=== PATIENT | female | born 1950 | race Caucasian/White ===

== ENCOUNTER → 2024-11-01 | Outpatient (CLI) | payer MEDICARE, SELFPAY ==
[2024-11-01 11:46] LABS: Mucous, Urine 0 SEEN /hpf (<or=2+)
[2024-11-01 12:27] LABS: Color, Urine Yellow (Yellow); Glucose, Dipstick Normal (Normal); Ketone-Dipstick 15 mg/dl (Negative); Leukocyte Esterase-Dipstick 25 /ul (Negative); Nitrite-Dipstick Negative (Negative); Occult Blood-Urine 25 /ul (Negative); Protein-Dipstick 15 mg/dl (Negative); Urine Bilirubin Dipstick Negative (Negative); Urine Clarity Sl. Cloudy (Clear); Urine Urobilinogen 1 mg/dl (Normal)
[2024-11-01 12:34] LABS: Bacteria 1+ /hpf (None Seen); Squamous Epithelial Cells - UA 0-5 SEEN /hpf (5-10)
[2024-11-01 12:35] LABS: Absolute Lymphocyte Count 0.97 X10^3/uL (0.83-4.51); Absolute Neutrophil Count 3.7 X10^3/uL (2.0-7.7); Basophil# 0.06 X10^3/uL; Basophil% 1.1 % (0-1); Eosinophil# 0.29 X10^3/uL; Eosinophils% 5.3 % (0-5); Hematocrit 37.4 % (37-47); Hemoglobin 12.7 g/dL (12.0-15.0); Lymphocyte # 0.97 X10^3/ul (0.83-4.51); Lymphocyte % 17.8 % (19-41); Mean Corpuscular Hgb 32.4 pg (27.0-32.0); Mean Corpuscular Volume 95.4 fL (81-99); Mean Platelet Vol. 10.9 fl (6.2-12.0); Monocyte# 0.47 X10^3/uL; Monocyte% 8.6 % (0-10); NRBC Flagged by Analyzer 0 % (0-5); Neutrophil # 3.65 X10^3/uL (2.7-7.7); Neutrophil % 66.8 % (47-70); Platelet Count 191 K/mm3 (150-450); RBC Distribution Width CV 12.8 % (11.6-14.6); RBC Distribution Width SD 44.7 fl (35.1-43.9); Red Blood Cells-Urine 0-5 SEEN /hpf (0-5); Red Blood Count 3.92 M/mm3 (4.2-5.4); White Blood Cells 0-5 SEEN /hpf (0-5); White Blood Count 5.5 K/mm3 (4.4-11.0)
[2024-11-01 13:19] LABS: ALB/GLOB Ratio 1.5 RATIO (0.9-2.4); AST(SGOT) 15 U/L (<=31); Alanine Aminotransfer ALT/SGPT < 5 U/L (<=34); Albumin, Serum 4.2 g/dL (3.4-4.8); Alkaline Phosphatase 100 U/L (35-104); Anion Gap 10 (5-15); BUN 20 mg/dL (4-19); BUN/Creat Ratio 26.1 RATIO (10-20); Calcium,Total 9.4 mg/dL (7.6-11.0); Carbon Dioxide 26.8 mmol/L (21.0-32.0); Chloride 104 mmol/L (98-108); Creatinine, Serum 0.76 mg/dL (0.70-1.20); EST Glomerular Filtration Rate 81 (>60); Globulin 2.8 g/dL (2.2-4.2); Glucose 76 mg/dL (70-99); Potassium 4.2 mmol/L (3.3-5.1); Sodium Level 140 mmol/L (133-145); Total Bilirubin 0.46 mg/dL (0.00-1.30)
== END | disposition home or self-care (01) ==
PROVIDERS: PCP Family Medicine; Referring Provider Family Medicine; Visit Provider Family Medicine
DX: I95.9 Hypotension, unspecified (principal)
CPT/HCPCS: 36415; 80053; 81001; 84443; 85025

== ENCOUNTER → 2024-11-03 | Outpatient (CLI) | payer MEDICARE, SELFPAY ==
--- OUTSIDE RECORDS SUMMARY | 2024-11-03 21:25 | XMS RPT_ITS | CCD ---
Author Organization [facility] Care Team Providers Care Illustrator Set Name Role Phone Unavailable Primary Care Provider UnavailDarcy Stark Attending Provider Darcy Pedraza Attending Unavailable David Phelps Primary Care Unavailable David Phelps Attending Unavailable David Phelps Referring Unavailable EVERETTE REGAN Referring Unavailable HOWARD LUKE Attending Unavailable EVERETTE REGAN Attending Unavailable MARILU MARTINEZ Referring Unavailable MARILU MARTINEZ Attending Unavailable Allergies Allergy Classification Reported Allergen(s) Allergy Type Date of Onset Reaction(s) Facility (3 sources) Neomycin; Translations: [NEOMYCIN] Drug Allergy 03-22-2024 [facility] (3 sources) Sulfonamides (Antibiotic); Translations: [SULFA (SULFONAMIDE ANTIBIOTICS)] Drug Allergy 03-22-2024 [facility] (3 sources) Thimerosal; Translations: [THIMEROSAL] Drug Allergy 03-22-2024 [facility] Medications Current Medications Medication Drug Class(es) Dates Sig (Normalized) Sig (Original) carbidopa 25 mg / levodopa 100 mg oral tablet (5 sources) Aromatic Amino Acid Decarboxylation Inhibitor, Aromatic Amino Acid Start: 08-29-2024 take 1.5 tablets by mouth five times daily carbidopa-levodo pa (SINEMET 25-100) 25-100 mg per tablet Take 1.5 tablets by mouth 5 times per day.. 225 tablet 5 08/29/2024 Active Start: 03-22-2024 End: 03-22-2025 take 2 tablets by mouth once daily at bedtime carbidopa-levodopa CR (SINEMET CR) 25-100 mg per tablet Indications: Parkinson's disease with dyskinesia and fluctuating manifestations (HCC) Take 2 tablets by mouth once daily. At bedtime 180 tablet 3 03/22/2024 03/22/2025 Active take 1 tablet by juan th once, then take 0.5 tablet by mouth four times daily carbidopa-levodopa (SINEMET 25-100) 25-100 mg per tablet TAKE 1 AND 1/2 TABLETS BY MOUTH 4 TIMES A DAY Active End: 03-22-2024 take 1 tablet by mouth once carbidopa-levodopa CR (SIN EMET CR) 25-100 mg per tablet Take 1 tablet by mouth. 03/22/2024 Discontinued clobetasol propionate 0.0005 mg/mg topical ointment (2 sources) Corticosteroid Start: 08-30-2021 clobetasol (TEMOVATE) 0.05 % ointment Apply topically 2 times daily to affected area for 2 weeks 08/30/2021 Active midodrine hydrochloride 5 mg oral tablet (2 sources) alpha-Adrenergic Agonist Start: 07-08-2023 midodrine (PROAMITINE) 5 mg tablet Take 5 mg by mouth. 07/08/2023 Active 24 hr rivastigmine 0.192 mg/hr transdermal system (2 sources) Start: 09-09-2024 End: 10-09-2024 apply 1 dose transdermal route once daily rivastigmine (EXELON PATCH) 4.6 mg/24 hour patch Indications: Dementia due to Parkinson's disease, without behavioral disturbance, psychotic disturbance, mood disturbance, or anxiety, unspecified dementia severity (HCC) Apply 1 patch as directed once daily. Apply patch to skin and leave on for [address] Then remove and place a patch at new site. 30 patch 09/09/2024 10/09/2024 Active Start: 09-09-2024 End: 03-08-2025 apply 1 dose transdermal route once daily rivastigmine (EXELON) 9.5 mg/24 hour patch Indications: Dementia due to Parkinson's disease, without behavioral disturbance, psychotic disturbance, mood disturbance, or anxiety, unspecified dementia severity (HCC) Apply 1 patch as directed once daily. 30 patch 5 09/09/2024 03/08/2025 Active Completed/Discontinued Medications Medication Drug Class(es) Dates Sig (Normalized) Sig (Original) 168 hr estradiol 0.0025 mg/hr transdermal system (2 sources) Estrogen Start: 01-15-2015 End: 09-09-2024 estradiol (CLIMARA) 0.06 mg/24 hr patch 01/15/2015 09/09/2024 Discontinued ofloxacin 3 mg/ml ophthalmic solution (2 sources) Quinolone Antimicrobial Start: 02-02-2024 End: 09-09-2024 ofloxacin (OCUFLOX) 0.3 % ophthalmic solution APPLY 1 DROP IN LEFT EYE 4 TIMES A DAY. USE IN OPERATIVE EYE 4 TIMES A DAY STARTING 3 DAYS PRIOR TO SURGERY AND CONTINUE AFTER SURGERY 02/02/2024 09/09/2024 Discontinued solifenacin succinate 10 mg oral tablet (2 sources) Cholinergic Muscarinic Antagonist Start: 02-26-2015 End: 09-09-2024 solifenacin (VESICARE) 10 mg tablet 02/26/2015 09/09/2024 Discontinued ubidecarenone 100 mg / vitamin e 5 unt oral capsule (2 sources) End: 09-09-2024 Coenzyme [id number] 100-5 mg-unit cap Take by mouth. 09/09/2024 Discontinued Problems Problem Classification Problem Date Documented Da te Episodic/Chronic Delirium, dementia, and amnestic and other cognitive disorders (1 source) Dementia in other diseases classified elsewhere without behavioral disturbance; Translations: [Dementia due to Parkinson's disease, without behavioral disturbance, psychotic disturbance, mood disturbance, or anxiety, unspecified dementia severity (HCC)] Onset: 09-09-2024 Chronic Genitourinary symptoms and ill-defined conditions (1 source) Urgent desire to urinate; Translations: [Urgency of urination] 09-09-2024 Episodic Other gastrointestinal disorders (2 sources) History of Crohns disease; Translations: [Personal history of other diseases of the digestive system] 11-01-2024 Episodic Other gastrointestinal disorders (1 source) Personal history of other diseases of the digestive system; Translations: [Personal history of other diseases of the digestive system] Onset: 11-01-2024 Episodic Parkinson`s disease (2 sources) Parkinson`s disease; Translations: [Dementia due to Parkinson's disease, without behavioral disturbance, psychotic disturbance, mood disturbance, or anxiety, unspecified dementia severity (HCC)] Onset: 09-09-2024 Unclassified (2 sources) Parkinson's disease; Translations: [Parkinson's disease with dyskinesia and fluctuating manifestations (HCC)] 03-22-2024 Chronic Unclassified (2 sources) Dementia due to Parkinson's disease; Translations: [Dementia due to Parkinson's disease, without behavioral disturbance, psychotic disturbance, mood disturbance, or anxiety, unspecified dementia severity (HCC)] 09-09-2024 Chronic Results Test Name Value Interpretation Reference Range Facility CBC W/Diff, Automatedon 10-23 Absolute Lymph 0.97 X10 3/uL Normal 0.83-4.51 [facility] Comment on above: Order Comment: Order Date: 08/25/24 Order Info: 0184-1 - CBCD Performed By: #### L 400.0001, L501.9520, L100.0100, L500.4050 #### [facility] [address] [place], [address] Absolute Neut 3.7 X10 3/uL Normal 2.0-7.7 [facility] Comment on above: Order Comment: Order Date: 08/25/24 Order Info: 018- - CBCD Performed By: #### L 400.0001, L501.9520, L100.0100, L500.4050 #### [facility] [address] [place], [address] Basophils/100 WBC (Bld) 1.1 % High 0-1 [facility] Comment on above: Order Comment: Order Date: 08/25/24 Order Info: 0184- - CBCD Performed By: #### L 400.0001, L501.9520, L100.0100, L500.4050 #### [facility] [address] [place], [address] Eosinophils/100 WBC (Bld) 5.3 % High 0-5 [facility] Comment on above: Order Comment: Order Date: 08/25/24 Order Info: 018- - CBCD Performed By: #### L 400.0001, L501.9520, L100.0100, L500.4050 #### [facility] [address] [place], [address] Erythrocyte distribution width (RBC) [Ratio] 12.8 % Normal 11.6-14.6 [facility] Comment on above: Order Comment: Order Date: 08/25/24 Order Info: 0184-1 - CBCD Performed By: #### L 400.0001, L501.9520, L100.0100, L500.4050 #### [facility] [address] [place], [address] Hematocrit (Bld) [Volume fraction] 37.4 % Normal 37-47 [facility] Comment on above: Order Comment: Order Date: 08/25/24 Order Info: 0184-1 - CBCD Performed By: #### L 400.0001, L501.9520, L100.0100, L500.4050 #### [facility] [address] [place], [address] Hemoglobin (Bld) [Mass/Vol] 12.7 g/dL Normal 12.0-15.0 [facility] Comment on above: Order Comment: Order Date: 08/25/24 Order Info: 0184-1 - CBCD Performed By: #### L 400.0001, L501.9520, L100.0100, L500.4050 #### [facility] [address] [place], [address] IG% 0.400 Normal 0.0-0.9 [facility] Comment on above: Order Comment: Order Date: 08/25/24 Order Info: 0184-1 - CBCD Result Comment: IG% - Immature Granulocytes (promyelocytes, myelocytes and metamyelocytes) > 1% indicates that a LEFT SHIFT is Present. Performed By: #### L 400.0001, L501.9520, L100.0100, L500.4050 #### [facility] [address] [place], [address] Lymphocytes/100 WBC (Bld) 17.8 % Low 19-41 [facility] Comment on above: Order Comment: Order Date: 08/25/24 Order Info: 0184-1 - CBCD Performed By: #### L 400.0001, L501.9520, L100.0100, L500.4050 #### [facility] [address] [place], [address] MCH (RBC) [Entitic mass] 32.4 pg High 27.0-32.0 [facility] Comment on above: Order Comment: Order Date: 08/25/24 Order Info: 0184-1 - CBCD Performed By: #### L 400.0001, L501.9520, L100.0100, L500.4050 #### [facility] [address] [place], [address] MCHC (RBC) [Mass/Vol] 34.0 g/dL Normal 32-36 [facility] Comment on above: Order Comment: Order Date: 08/25/24 Order Info: 0184-1 - CBCD Performed By: #### L 400.0001, L501.9520, L100.0100, L500.4050 #### [facility] [address] [place], [address] MCV (RBC) [Entitic vol] 95.4 fL Normal 81-99 [facility] Comment on above: Order Comment: Order Date: 08/25/24 Order Info: 0184-1 - CBCD Performed By: #### L 400.0001, L501.9520, L100.0100, L500.4050 #### [facility] [address] [place], [address] Monocytes/100 WBC (Bld) 8.6 % Normal 0-10 [facility] Comment on above: Order Comment: Order Date: 08/25/24 Order Info: 0184-1 - CBCD Performed By: #### L 400.0001, L501.9520, L100.0100, L500.4050 #### [facility] [address] [place], [address] Neutrophils/100 WBC (Bld) 66.8 % Normal 47-70 [facility] Comment on above: Order Comment: Order Date: 08/25/24 Order Info: 0184-1 - CBCD Performed By: #### L 400.0001, L501.9520, L100.0100, L500.4050 #### [facility] [address] [place], [address] Nucleated RBC (Bld) [#/Vol] 0 10*3/uL Normal 0-5 [facility] Comment on above: Order Comment: Order Date: 08/25/24 Order Info: 0184-1 - CBCD Performed By: #### L 400.0001, L501.9520, L100.0100, L500.4050 #### [facility] [address] [place], [address] Platelet mean volume (Bld) [Entitic vol] 10.9 fL Normal 6.2-12.0 [facility] Comment on above: Order Comment: Order Date: 08/25/24 Order Info: 0184-1 - CBCD Performed By: #### L 400.0001, L501.9520, L100.0100, L500.4050 #### [facility] [address] [place], [address] Platelets (Bld) [#/Vol] 191 10*3/uL Normal 150-450 [facility] Comment on above: Order Comment: Order Date: 08/25/24 Order Info: 0184-1 - CBCD Performed By: #### L 400.0001, L501.9520, L100.0100, L500.4050 #### [facility] [address] [place], [address] RBC (Bld) [#/Vol] 3.92 10*6/uL Low 4.2-5.4 [facility] Comment on above: Order Comment: Order Date: 08/25/24 Order Info: 0184-1 - CBCD Performed By: #### L 400.0001, L501.9520, L100.0100, L500.4050 #### [facility] [address] [place], [address] RDW SD 44.7 fl High 35.1-43.9 [facility] Comment on above: Order Comment: Order Date: 08/25/24 Order Info: 0184-1 - CBCD Performed By: #### L 400.0001, L501.9520, L100.0100, L500.4050 #### [facility] [address] [place], [address] WBC (Bld) [#/Vol] 5.5 10*3/uL Normal 4.4-11.0 [facility] Comment on above: Order Comment: Order Date: 08/25/24 Order Info: 0184-1 - CBCD Performed By: #### L 400.0001, L501.9520, L100.0100, L500.4050 #### [facility] [address] [place], [address] Comprehensive Metabolic Prof [facility] 11-01-2024 Albumin [Mass/Vol] 4.2 g/dL Normal 3.4-4.8 [facility] Comment on above: Order Comment: Order Date: 08/25/24 Order Info: 0786-1 - CMP Order Info: 3016-3 - TSH Performed By: #### L 400.0001, L501.9520, L100.0100, L500.4050 #### [facility] [address] [place], [address] Albumin/Globulin [Mass ratio] 1.5 {ratio} Normal 0.9-2.4 [facility] Comment on above: Order Comment: Order Date: 08/25/24 Order Info: 0786-1 - CMP Order Info: 3016-3 - TSH Performed By: #### L 400.0001, L501.9520, L100.0100, L500.4050 #### [facility] [address] [place], [address] ALK PHOS 100 U/L Normal 35-104 [facility] Comment on above: Order Comment: Order Date: 08/25/24 Order Info: 0786-1 - CMP Order Info: 3015-3 - TSH Performed By: #### L 400.0001, L501.9520, L100.0100, L500.4050 #### [facility] [address] [place], [address] ALT [Catalytic activity/Vol] U/L Normal <=34 [facility] Comment on above: Order Comment: Order Date: 08/25/24 Order Info: 0786-1 - CMP Order Info: 3015-3 - TSH Performed By: #### L 400.0001, L501.9520, L100.0100, L500.4050 #### [facility] [address] [place], [address] AST [Catalytic activity/Vol] 15 U/L Normal <=31 [facility] Comment on above: Order Comment: Order Date: 08/25/24 Order Info: 0786-1 - CMP Order Info: 301-3 - TSH Performed By: #### L 400.0001, L501.9520, L100.0100, L500.4050 #### [facility] [address] [place], [address] Bilirubin [Mass/Vol] 0.46 mg/dL Normal 0.00-1.30 [facility] Comment on above: Order Comment: Order Date: 08/25/24 Order Info: 0786-1 - CMP Order Info: 301-3 - TSH Performed By: #### L 400.0001, L501.9520, L100.0100, L500.4050 #### [facility] [address] [place], [address] BUN/CRE 26.1 RATIO High 10-20 [facility] Comment on above: Order Comment: Order Date: 08/25/24 Order Info: 0786-1 - CMP Order Info: 3016-3 - TSH Performed By: #### L 400.0001, L501.9520, L100.0100, L500.4050 #### [facility] [address] [place], [address] Calcium [Mass/Vol] 9.4 mg/dL Normal 7.6-11.0 [facility] Comment on above: Order Comment: Order Date: 08/25/24 Order Info: 0786-1 - CMP Order Info: 3 - TSH Performed By: #### L 400.0001, L501.9520, L100.0100, L500.4050 #### [facility] [address] [place], [address] Chloride [Moles/Vol] 104 mmol/L Normal 98-108 [facility] Comment on above: Order Comment: Order Date: 08/25/24 Order Info: 0786-1 - CMP Order Info: 3 - TSH Performed By: #### L 400.0001, L501.9520, L100.0100, L500.4050 #### [facility] [address] [place], [address] CO2 [Moles/Vol] 26.8 mmol/L Normal 21.0-32.0 [facility] Comment on above: Order Comment: Order Date: 08/25/24 Order Info: 0786-1 - CMP Order Info: 3 - TSH Performed By: #### L 400.0001, L501.9520, L100.0100, L500.4050 #### [facility] [address] [place], [address] Creatinine [Mass/Vol] 0.76 mg/dL Normal 0.70-1.20 [facility] Comment on above: Order Comment: Order Date: 08/25/24 Order Info: 0786-1 - CMP Order Info: 3 - TSH Performed By: #### L 400.0001, L501.9520, L100.0100, L500.4050 #### [facility] [address] [place], [address] GAP 10 Normal 5-15 [facility] Comment on above: Order Comment: Order Date: 08/25/24 Order Info: 0786-1 - CMP Order Info: 3015-07 - TSH Performed By: #### L 400.0001, L501.9520, L100.0100, L500.4050 #### [facility] [address] [place], [address] GFR/1.73 sq M.predicted among non-blacks MDRD (S/P/Bld) [Vol rate/Area] 81 mL/min/{1.73_m2} Normal >60 [facility] Comment on above: Order Comment: Order Date: 08/25/24 Order Info: 0786-1 - CMP Order Info: 3015-07 - TSH Result Comment: mL/m in/1.73m2 CKD-EPI Creatinine Equation (2020) Performed By: #### L 400.0001, L501.9520, L100.0100, L500.4050 #### [facility] [address] [place], [address] Globulin (S) [Mass/Vol] 2.8 g/dL Normal 2.2-4.2 [facility] Comment on above: Order Comment: Order Date: 08/25/24 Order Info: 0786-1 - CMP Order Info: 3015-07 - TSH Performed By: #### L 400.0001, L501.9520, L100.0100, L500.4050 #### [facility] [address] [place], [address] Glucose [Mass/Vol] 76 mg/dL Normal 70-99 [facility] Comment on above: Order Comment: Order Date: 08/25/24 Order Info: 0786-1 - CMP Order Info: 3015-07 - TSH Performed By: #### L 400.0001, L501.9520, L100.0100, L500.4050 #### [facility] [address] [place], [address] Potassium [Moles/Vol] 4.2 mmol/L Normal 3.3-5.1 [facility] Comment on above: Order Comment: Order Date: 08/25/24 Order Info: 0786-1 - CMP Order Info: 3015-3 - TSH Performed By: #### L 400.0001, L501.9520, L100.0100, L500.4050 #### [facility] [address] [place], [address] Sodium [Moles/Vol] 140 mmol/L Normal 133-145 [facility] Comment on above: Order Comment: Order Date: 08/25/24 Order Info: 0786- - CMP Order Info: 3 - TSH Performed By: #### L 400.0001, L501.9520, L100.0100, L500.4050 #### [facility] [address] [place], [address] T PROT 7.0 g/dL Normal 5.9-8.4 [facility] Comment on above: Order Comment: Order Date: 08/25/24 Order Info: 0786- - CMP Order Info: 3 - TSH Performed By: #### L 400.0001, L501.9520, L100.0100, L500.4050 #### [facility] [address] [place], [address] Urea nitrogen [Mass/Vol] 20 mg/dL High 4-19 [facility] Comment on above: Order Comment: Order Date: 08/25/24 Order Info: 0786-1 - CMP Order Info: 3013 - TSH Performed By: #### L 400.0001, L501.9520, L100.0100, L500.4050 #### [facility] [address] [place], [address] Gastroenterology Visit Repor ton 11-01-2024 Gastroenterology Visit Report [facility] [address] [place] [address] OFFICE VISIT Date of Service: 11/01/24 MR#: [id number] Acct: [id number] Name: ANNE MCGOVERN Rep #: [id number] : 1950 Provider: NYASIA Browne Age/Sex: 74/F Location: [email or web address] Status: Signed Intake Intake Visit Reasons: Crohns Chief Complaint: Hx of Crohns disease Patient : No Have you fallen in the past year?: No Nurse's Note: OV 11/01/24 Pt here to establish care with [facility] and reports constipation. Pt reports prior hx of colonoscopy about 8 years ago. HPI HPI Chief Complaint: Hx of Crohns disease Details: ANNE MCGOVERN, is a 74 F who presents to the office today for establishment with [facility]. Pt referred to [facility] from PCP for hx of Crohns not currently on treatment. Diagnosed about 30 years ago. Pt recently diagnosed with Parkinsons and dementia. Pt having symptoms including constipation but no diarrhea or blood in her stool. She is having a bm every 3-4 days. Does have to strain with bm. Takes Colace as needed. She has never had any symptoms of Crohns disease and is unsure how she was diagnosed. Last colonoscopy; 8-9 years ago with normal findings, anesthesia made her parkinsons worse x6 months Prior treatments; oral medication unsure what ROS Const Constitutional: No fatigue, fever(s) or weight change ENT ENT: No difficulty swallowing Gastro GI: Positive for constipation; No abdominal pain, belching, bloating, change in bowel habits, change in stool character, coffee ground emesis, cramping, diarrhea, heartburn, difficulty swallowing, feeling full early, excessive flatus, incontinent of stools, Vomiting blood/hematemesis, Blood in stool, loose stools, Black,tarry stools, nausea/dyspepsia, pain with swallowing, vomiting or other Musc Musculoskeletal: Positive for restless legs and leg pain at night; No joint pain Skin Skin: No yellowing of the eye or itchy eyes Neuro Neurology: Positive for restless legs Psych Psychiatric: Positive for anxiety and No depression Endo Endocrine: No fatigue or weight change Aller/Imm Allergy/Immunologic: No itchy eyes Fredy/Lymp Hematologic/Lymphatic: No easy bleeding or easy bruising Exam Const General: cooperative and healthy appearing Resp Effort Inspection: normal respiratory effort Cardio Rate: regular rate Rhythm: regular rhythm GI Inspection: normal to inspection Auscultation: normal bowel sounds Palpation: soft, no hepatosplenomegaly and nontender Assessment and Plan Assessment and Plan (1) Hx of Crohn's disease: Status: Acute Plan: Anne is a 74 yo female pt here today for PMHx of Crohsn disease. Pt endorses being diagnosed with Crohns disease about 30 years ago and was treated with oral medications. She is not currently being treated. She has never had any symptoms of Crohns disease. She was recently diagnosed with Parkinsons and dementia. She would prefer to avoid colonoscopy as her last time going under anesthesia it made her parkinsons much worse for about 6 months. I will order stool calprotectin to ensure she does not have any inflammation in her colon. Will consider further work up in the future however if stool is negative I do not believe treatment is necessary as she is asymptomatic. -Calprotectin -Continue Colace -f/u as needed Orders: Orders Calprotectin, Stool Today Z87.19 - Personal history of other diseases of the digestive system Coding Level of Care Code Off vis,new,level 4 Diagnoses Hx of Crohn's disease Z87.19 Clinical Quality Measures Falls Risk Screening/Assistive Devices Have you fallen in the past year?: No 11/01/24 1149 Date Darcy Keller Signature: Date (if applicable) CC: Normal [facility] Thyroid Stim Hormone (TSH)on 11-01-2024 TSH 1.130 uIU/mL Normal 0.300-4.200 [facility] Comment on above: Order Comment: Order Date: 08/25/24 Order Info: 0786-1 - CMP Order Info: 3016-3 - TSH Performed By: #### L 400.0001, L501.9520, L100.0100, L500.4050 #### [facility] [address] [place], [address] Urinalysis, Completeon 11-01 RBC 0-5 SEEN Normal 0-5 [facility] Comment on above: Order Comment: Order Date: 08/25/24 Order Info: [id number] [facility] TO SPECIFY Performed By: #### L 400.0001, L501.9520, L100.0100, L500.4050 #### [facility] [facility] [address] [place], [address] WBC 0-5 SEEN Normal 0-5 [facility] Comment on above: Order Comment: Order Date: 08/25/24 Order Info: [id number] [place] TO SPECIFY Performed By: #### L 400.0001, L501.9520, L100.0100, L500.4050 #### [facility] [address] [place], [address] BACTERIA 1+ /hpf Normal None Seen [facility] Comment on above: Order Comment: Order Date: 08/25/24 Order Info: [id number] [facility] [place] TO SPECIFY Performed By: #### L 400.0001, L501.9520, L100.0100, L500.4050 #### [facility] [address] [place], [address] EPI,SQUAMOUS 0-5 SEEN Normal 5-10 [facility] Comment on above: Order Comment: Order Date: 08/25/24 Order Info: [id number] [place] TO SPECIFY Performed By: #### L 400.0001, L501.9520, L100.0100, L500.4050 #### [facility] [address] [place], [address] Mucus Ql (Urine sed) 0 SEEN Normal [facility] Comment on above: Order Comment: Order Date: 08/25/24 Order Info: [id number] - [facility] [place] TO SPECIFY Performed By: #### L 400.0001, L501.9520, L100.0100, L500.4050 #### [facility] [address] [place], [address] Madeline 10-14-2024 CNPN Telephone (NREUS2) ANNE MCGOVERN ([id number]) 1950 F Date Time Provider Department 10/14/24 HOWARD LUKE NRJOELS2 During your visit today, we recorded the following information about you: Ligia Chen 10/14/2024 4:34 PM Signed calling to say that now that she has started the 9.5 mg patch, she is nauseous, vomiting, not eating, her PD symptoms are worse with freezing and moving. He says he called the pharmacist and was told it would pass. He says all the symptoms on the medication warning is what she's experiencing. He doesn't want to give her another patch tonight but he's not sure what to do as they are out of the 4.6 mg patches. He is requesting a call CHAD. He is aware that if something worsens to seek nearest ED. Brook Serrano APRN.SENIOR STAFF CONSULTANT 10/14/2024 5:08 PM Signed Sent over RX to local pharmacy of the lower strength patch of Rivastigmine. Called and LVM regarding stopping the 9.5 patch and can restart the 4.6 mg patch. Also told him the side effects should resolve in 24-48 hours and if they do not, to have her checked and make sure nothing else could be causing her symptoms. I told them to let Howard know next week if she has improved. Brook Serrano APRN.SENIOR STAFF CONSULTANT Ligia Chen 10/26/2024 10:31 AM Signed calling to say that symptoms seem better since going back to 4.6 mg. He wants to know if this is where she should stay? Should medication be changed in the future. He is requesting a call at [phone]. Cat Blood APRN.CNP 11/01/2024 11:08 AM Addendum Since she is doing better back down, she can stay on the Exelon 4.6mg for now and it can be reassessed at her upcoming visit with Howard in November. However, Howard will be made aware of all of this and if she wants to make a change or move up her appointment, they will be contacted. Cat Blood APRN-Carmela Shen RN 11/01/2024 11:34 AM Signed Message from provider given Spouse reports mild skin irritation a few hours after removing patch Recommendations given: Remove the patch carefully and gently. Wash the affected area with soap and warm water to remove any residue. Do not use rubbing alcohol or nail puerto rican remover, as this can worsen the irritation. Apply a new patch to a different site, rotating the application sites daily to minimize future irritation. Do not reuse the same spot for at least 14 days. Keep the affected skin clean and dry. Avoid applying lotions, oils, or powders to the skin before applying the patch. Ensure the patch is applied correctly, pressing it firmly to make good contact with the skin. Allergies As of Date: 10/14/2024 Noted Allergy Reaction NEOMYCIN 03/22/2024 2 - Rash SULFA (SULFONAMIDE ANTIBIOTICS) 03/22/2024 2 - Rash THIMEROSAL 03/22/2024 2 - Rash Date Reviewed: 09/09/2024 Reviewed by: Howard Luke APRN.CNP - Fully Assessed Reason for Visit: Medication Problem [65] Prescriptions as of 11/01/2024 - rivastigmine (EXELON PATCH) 4.6 mg/24 hour patch Apply 1 patch as directed once daily. Apply patch to skin and leave on for 24 hours[address] Then remove and place a patch at new site. - carbidopa-levodopa (SINEMET 25-100) 25-100 mg per tablet Take 1.5 tablets by mouth 5 times per day.. - clobetasol (TEMOVATE) 0.05 % ointment Apply topically 2 times daily to affected area for 2 weeks - midodrine (PROAMITINE) 5 mg tablet Take 5 mg by mouth. - carbidopa-levodopa CR (SINEMET CR) 25-100 mg per tablet Take 2 tablets by mouth once daily. At bedtime Problem List As Of Date: 10/14/2024 (None) Encounter Status:Closed by BROOK SERRANO on 10/14/24 [facility] CNOVon 09-09-2024 CNOV Office Visit (NRMDN) ANNE MCGOVERN ([id number]) 1950 F Date Time Provider Department 09/09/24 10:00 AM HOWARD LUKE During your visit today, we recorded the following information about you: Pulse Blood pressure Weight Height 71/minute 122/72 57.3 kg 1.676 m Howard Luke APRN.SENIOR STAFF CONSULTANT 09/09/2024 11:27 AM Signed Continue taking your Sinemet 25/100 as prescribed - 1? tablets five times a day, and Sinemet CR 2 tablets at bedtime. Begin the memory medication with your Exelon patch. Start with the 4.6-mg patch: Apply a new patch each day (wear it for 24 hours, then remove, wipe the skin, and rotate the application site). Use this dose for one month, then switch to the 9.5-mg patch as prescribed. Your Exelon patch prescription has been sent to [facility] in [place]. Use proper patch rotation each day. Attend your scheduled virtual neuropsychological testing review with Dr. Regan on Thursday. -Make sure you are drinking 6-8 glasses of water a day. Follow up in 3 months with me - If you experience any new side effects--such as dizziness or skin irritation from the patch--or have any other concerns, please call the provided number or send a message through [employer]. Howard Luke APRN.LAKISHA 09/09/2024 11:49 AM Signed [facility] - FOLLOW UP EVALUATION Recording using CakeStyle software for draft documentation of the visit was discussed with the patient/authorized vaccine customer representative; all questions welcomed and answered. Patient/authorized vaccine customer representative agreed to proceed I had the pleasure of seeing Ms. Mcgovern for follow-up today. She is a 74 year old right-handed female with a history of PD since 2010. Subjective Interval History: Parkinson's Disease: - Diagnosed 16 years ago. - Managed with carbidopa/levodopa, taking 1.5 tablets 4-5 times daily if going out in the evening to prevent freezing and rigidity. When at home she feels like the evening time is short because when she starts moving slower she just goes to bed because its easier. - Takes 2 CR tablets at bedtime. - Experiences leg cramping at night, sometimes takes her first dose of Sinemet a little early to alleviate symptoms. - Followed by Dr. Peters in [place] every 6 months; last seen in May. - Engages in physical therapy, occupational therapy, and speech therapy monthly in [place] in past. - Participates in boxing exercises. - Experiences occasional dyskinesia in the head, which is not bothersome. - Has experienced freezing episodes in public settings. - provides verbal prompts to assist with mobility during freezing episodes. Dementia: - Noted decline in cognitive skills. does most iADL's. - Recent neuropsychological testing completed; follow-up appointment with Dr. Regan scheduled for Thursday. - No history of hallucinations. - Previously an avid reader; considering resuming reading activities. Nocturia: - Experiences frequent nocturia. - Previously took Vesicare, discontinued a few years ago due to side effects.Not interested in taking a medication for urinary urgency. Denies hallucinations, illusions, or delusions. Movement Disorders Medications Schedule - as of the start of the visit: Medications 8 11 200 500 7p bed Sinemet (carbidopa-levodopa) 25/100 1.5 1.5 1.5 1.5 1.5 Sinemet (carbidopa-levodopa) CR 25/100 2 midodrine 5 mg 1-2 times per day Vesicare Parkinson's Motor Complications Medication duration: 3.5 hours Wearing off: yes Painful off-state dystonia: no Dyskinesia: yes Prior Anti-Parkinson Therapies Carbidopa/Levodopa Carbidopa/Levodopa CR Questionnaires: In addition, the following areas that may be affected by abnormal involuntary movements were evaluated: Daily activities Difficulties with eatin (none) Difficulties in dressing: Yes (slight) Difficulties with hygiene activities: Yes (slight) Difficulties with handwritin (none) Difficulties with doing hobbies and other activities: Yes (slight) Difficulties turning in bed: Yes (slight) Difficulties getting out of bed, car or chair: Yes (mild) Tremors/Gait/Balance Shaking or tremors: Yes (slight) Walking and balance problems: Yes (mild) Number of falls in the Last Month: 0 Gait freezing: Yes (mild) Autonomic/Pain Lightheadeness on standing: Yes (slight) Urinary problems: Yes (slight) Constipation problems: Yes (slight) Pain and other sensations: Yes (slight) Speech/Swallowing Speech problems: Yes (mild) Droolin (none) Chewing and swallowing problems: 0 (none) Sleep/Fatigue Sleep problems: Yes (mild) Daytime sleepiness: Yes (slight) Fatigue: Yes (slight) Mood/Behavior Depression: PHQ-9 Score: 3 usually representing no significant (0-4) depression. Anxiety: ALPHONSE-7 Total Score: 4 usually representing no significant (0-4) anxiety. Finally, the following table shows the (more content not included)... Normal [facility] CNOVon 08-03-2024 CNOV Office Visit (PSYTMN ) SHANIQUAANNE ([id number]) 1950 F Date Time Provider Department 08/03/24 12:30 PM EVERETTE REGAN PSYTMN During your visit today, we recorded the following information about you: Everette Regan PSYD 08/09/2024 10:57 AM Signed [facility] Section of Neuropsychology Neuropsychological Evaluation Report CONFIDENTIAL Patient: Anne Mcgovern Age: [age] year old : 1950 Sex: female Date of Evaluation: 08/03/2024 History and Presenting Problem: Mrs. Anne Mcgovern is a 74 year old woman with Parkinson's disease referred for evaluation of cognitive and memory changes. She was accompanied by her . She recently moved from [place] to [place] (July 2023), though she will continue to live in [place] during the winter. She was scheduled to undergo neuropsychological testing in [place], but it was not completed before she moved to [place]. Testing was order based on a cognitive screening test and her reports of cognitive and memory changes. During the evaluation today, she frequently looked to her to provide information/answers, as she was unable to do so herself. She stated that she forgets some details of conversations. She can repeat herself. She sometimes misplaces things. Her now tracks events/appts for her, because she was having difficulties. Her remote memory is good. She does well with the names of family and friends. She has problems with word finding. She likes reading, but she reads less than she used to. She is slower with reading, but she can focus well and does not need to re-read things. She has difficulties with concentration and attention, even if there are no distractions. She is easily distracted. Her mind does not wander in conversation, but she has difficulties tracking TV and movie plots. She is having difficulties with organization. She attributed this to not having enough time to keep organized, but she was unable to describe what occupies most of her time. She indicated that her time is spent managing paperwork related to insurance, but could provide no other details.She feels cognitively slow. She has difficulties making simple decisions and relies on her . Overall, she believes that she has experienced a moderate degree of cognitive changes over time. Her indicated that she was in good cognitive health until 2 years ago. ADLS: Her took over the finances, medications, and cooking 2 years ago. She is not driving. She is independent with her basic ADLs. She has not been exercising, but she is planning on starting [employer] with a PD group this week. She will also be starting a PD exercise program. Her is looking to set up private 1:1 PT/OT for her in [place]. She is starting to walk more now that the weather is improving. Neuropsychiatric Symptoms: She denied depression or general anxiety. She denied hallucinations of all types. She infrequently experiences a sense of presence. She denied suicidal ideation. Sleep: She denied problems with sleep onset or maintenance. She used to have nightmares, but she has less now. She has nocutria, but can return to sleep. Medical History: She denied a history of head injury, stroke, seizure, or cancer. There is no problem list on file for this patient. Current Outpatient Medications on File Prior to Visit Medication Sig carbidopa-levodopa (SINEMET 25-100) 25-100 mg per tablet TAKE 1 AND 1/2 TABLETS BY MOUTH 4 TIMES A DAY clobetasol (TEMOVATE) 0.05 % ointment Apply topically 2 times daily to affected area for 2 weeks estradiol (CLIMARA) 0.06 mg/24 hr patch midodrine (PROAMITINE) 5 mg tablet Take 5 mg by mouth. ofloxacin (OCUFLOX) 0.3 % ophthalmic solution APPLY 1 DROP IN LEFT EYE 4 TIMES A DAY. USE IN OPERATIVE EYE 4 TIMES A DAY STARTING 3 DAYS PRIOR TO SURGERY AND CONTINUE AFTER SURGERY solifenacin (VESICARE) 10 mg tablet Coenzyme E07-Aythpel E 100-5 mg-unit cap Take by mouth. carbidopa-levodopa CR (SINEMET CR) 25-100 mg per tablet Take 2 tablets by mouth once daily. At bedtime No current facility-administered medications on file prior to visit. Pain: She denied significant and/or disruptive pain, except for leg cramping at night. Alcohol: Rarely (1x a month) Tobacco: Denied Illicit Drugs: Denied Family History: Her mother had Alzheimer's disease and received professional care for the last 15 years of her life. Educational AND Occupational History: She denied a history of learning or academic difficulty. She graduated from high school. She completed classes in technical school. 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 Social History: She lives with her . She has two step-children in [place]. She has great nieces who live locally. Her have a lot of family in the area. Behavioral Observations: She was appropriat (more content not included)... Normal [facility] CNOVon 03-22-2024 CNOV Office Visit (NRMDN) ANNE MCGOVERN ([id number]) 1950 F Date Time Provider Department 03/22/24 11:00 AM MARILU MARTINEZ During your visit today, we recorded the following information about you: Weight Height 56 kg 1.676 m Marilu Martinez MD 03/22/2024 8:26 PM Signed [facility] - NEW PATIENT EVALUATION No referring provider defined for this encounter. I had the pleasure of evaluating Ms. Mcgovern to our clinic today. As you know she is a 73 year old right-handed female who is seen for evaluation of PD since 2010. She is seen with her . Subjective HISTORY OF PRESENT ILLNESS: Initial HPI Here to establish care. Moved to [place] from [place] in July 2023. 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 Plans to leave for [place] in May, visit multiple friends until July. Will resume therapy when they get to [place]. PD started 2010 with left hand tremor. Doesn't notice any symptoms on the right side. Wanting neuropsychological testing. Screening in the neurologist office reportedly indicated mild impairment. Cannot draw the clock. Was scheduled in [place] but unable to get it completed before they moved to [place]. She loses her train of thought. Needs repetition. Delayed recall. Friends are patient with her in conversation. Was going to do cognitive therapy in [place] but ran out of time before they left. Exercises, boxing class, etc. [place] PD exercise classes. Very active socially. 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 Question if levodopa pump has been approved. Has off time. About once per week takes extra 1 to 1.5 tabs around 7p if they have a social engagement. Has forgotten the bedtime CR and legs are tighter. Not sure it is helping/lasting long enough. Takes another 1 tab Sinemet in the middle of the night sometimes for leg tightness. Not wearing off during the day. Head of bed is elevated for NOH. sleeps in another room. On midodrine. Low BP in the mornings. Little lightheaded with orthostatics today. No falls. No syncope. In 2022 she was falling due to syncope. Doesn't get enough water. Drinks Propel. Doesn't like Gatorade. Movement Disorders Medications Schedule - as of the start of the visit: Medications 8 11 200 500 7p bed 2-5AM Sinemet 25/100 1.5 1.5 1.5 1.5 1-1.5 as needed 1 as needed for leg tightness Sinemet CR 25/100 1 midodrine 5 mg 1-2 times per day Vesicare Parkinson's Motor Complications Medication duration: 3.5 hours Wearing off: yes Dyskinesia: yes Prior Anti-Parkinson Therapies Carbidopa/Levodopa Carbidopa/Levodopa CR Questionnaires: In addition, the following areas that may be affected by abnormal involuntary movements were evaluated: Daily activities Difficulties with eatin (none) Difficulties in dressing: Yes (slight) Difficulties with hygiene activities: Yes (slight) Difficulties with handwritin (none) Difficulties with doing hobbies and other activities: Yes (slight) Difficulties turning in bed: Yes (slight) Difficulties getting out of bed, car or chair: Yes (mild) Tremors/Gait/Balance Shaking or tremors: Yes (slight) Walking and balance problems: Yes (mild) Number of falls in the Last Month: 0 Gait freezing: Yes (moderate) Autonomic/Pain Lightheadeness on standin (none) Urinary problems: Yes (mild) Constipation problems: Yes (slight) Pain and other sensations: Yes (slight) Speech/Swallowing Speech problems: Yes (slight) Droolin (none) Chewing and swallowing problems: 0 (none) Sleep/Fatigue Sleep problems: Yes (moderate) Daytime sleepiness: Yes (mild) Fatigue: Yes (slight) Mood/Behavior Depression: Anxiety: ALPHONSE-7 Total Score: 5 usually representing mild (5-9) anxiety. Finally, the following table shows the patient's overall global physical and mental health using the PROMIS scale: PROMIS-10 Flowsheet Row Office Visit from 03/22/2024 in Neurology Global Physical Health T Score 54.1 Global Mental Health T Score 53.3 0-10 Standard Pain Scale 5 *PROMIS-10 scoring scale: mean = 50, over 50 is above average, under 50 is below average Review of Systems Review of Systems Constitutional Positive for Fatigue Negative for Fevers, Night Sweats, Weight Gain and Weight Loss Eyes Negative for Change in vison not corrected by glasses and Vision loss or change Hent Positive for Tinnitus and Recent change in speech or voice Negative for Hearing Loss and Difficulty Swallowing Cardiovascular Positive for Lightheadedness Negative for Chest Pain and Leg pain with walking Respiratory Negative for SOB at rest, SOB with exertion, Cough, Wheezing and Snoring GI Negative for Blood in Stool, Abdominal Pain, Diarrhea, Constipation, Nausea/Vomiting and Heartburn Positive for Urgency Ne (more content not included)... Normal [facility] Vital Signs Date Time Vital Sign Value Performing Clinician Faci lity 09-09-2024 10:05-0400 Body height 167.6 cm Howardtej Luke RING ROLLING MACHINE OPERATOR.[facility] Work Phone: [facility] 09-09-2024 10:05-0400 Body mass index (BMI) [Ratio] 20.39 kg/m2 Howardtej Luke RING ROLLING MACHINE OPERATOR.[facility] Work Phone: [facility] 09-09-2024 10:05-0400 Body weight 57.3 kg Howardtej Luke RING ROLLING MACHINE OPERATOR.[facility] Work Phone: [facility] 09-09-2024 10:05-0400 Diastolic blood pressure 72 mm[Hg] Howard Luke RING ROLLING MACHINE OPERATOR.[facility] Work Phone: [facility] 09-09-2024 10:05-0400 Heart rate 71 /min Howard Luke RING ROLLING MACHINE OPERATOR.[facility] Work Phone: [facility] 09-09-2024 10:05-0400 SaO2% (BldA) [Mass fraction] 99 % Howardtej Luke RING ROLLING MACHINE OPERATOR.[facility] Work Phone: [facility] 09-09-2024 10:05-0400 Systolic blood pressure 122 mm[Hg] Howard Luke RING ROLLING MACHINE OPERATOR.[facility] Work Phone: [facility] 03-22-2024 11:07-0400 Body height 167.6 cm Marilu Martinez MD Work Phone: [facility] 03-22-2024 11:07-0400 Body mass index (BMI) [Ratio] 19.93 kg/m2 Marilu Martinez MD Work Phone: [facility] 03-22-2024 11:07-0400 Body weight 56 kg Marilu Martinez MD Work Phone: [facility] 03-22-2024 11:07-0400 SaO2% (BldA) [Mass fraction] 98 % Marilu Martinez MD Work Phone: [facility] Encounters Encounter Date Encounter Type Care Provider Facility Start: 11-01-2024 ambulatory [facility] Facilit y:[facility] Start: 11-01-2024 End: 11-01-2024 Patient encounter procedure Darcy Pedraza [facility] Work Phone: Start: 11-01-2024 End: 11-01-2024 ambulatory Darcy Pedraza [facility] Work Phone: Start: 09-12-2024 End: 09-12-2024 ambulatory [facility] Facility:[facility] Start: 09-09-2024 End: 09-09-2024 Office outpatient visit 40 minutes Howard Luke APRN.CNP Work Phone: Neurology Comment on above: Parkinson's disease with dyskinesia and fluctuating manifestations (HCC) (Primary Dx); Dementia due to Parkinson's disease, without behavioral disturbance, psychotic disturbance, mood disturbance, or anxiety, unspecified dementia severity (HCC); Urinary urgency Start: 09-09-2024 End: 09-09-2024 ambulatory HOWARD LUKE Facility:[facility] Start: 08-03-2024 End: 08-04-2024 ambulatory [facility] Facility:[facility] Start: 03-22-2024 End: 03-22-2024 ambulatory MARILU MARTINEZ Facility:[facility] Start: 03-22-2024 End: 03-22-2024 Patient encounter procedure Marilu Martinez MD Work Phone: Neurology Comment on above: Parkinson's disease with dyskinesia and fluctuating manifestations (HCC) (Primary Dx) Procedures Date Procedure Procedure Detail Performing Clinician Start: 08-06-2022 Lipid 1996 panel - S simon or Plasma Marilu Martinez MD Work Phone: Plan of Treatment Date Care Activity Detail Author Start: 08-07-2027 Lipid panel Lipid Screening [facility] Start: 08-06-2025 Diabetes Screening Diabetes Screenin g [facility] Start: 12-16-2024 End: 12-16-2024 Follow-up encounter 12/16/2024 1:00 PM EDT [facility] [address] [id number] Howard Luke, MARY.SENIOR STAFF CONSULTANT [address] [place] [address] 3 month follow up Neurology Comment on above: 3 month follow up Start: 05-25-2024 Advance Directive Discussion Advance Directive Discussion [facility] Start: 01-24-2024 Covid-19 Vaccine ( season) Covid-19 Vaccine () [facility] Start: 01-24-2024 Influenza vaccination Influenza Vacc ine (#1) [facility] Start: 2023 RSV Vaccine (1 - 1-d ose 75+ series) RSV Vaccine (1 - 1-dose 75+ series) [facility] Start: 05-25-2023 Advance Directive Discussion Advance Directive Discussion [facility] Start: 07-29-2019 Pneumococcal Vaccine : 50+ (2 of 2 - PPSV23) Pneumococcal Vaccine: 50+ (2 of 2 - PPSV23) [facility] Start: 07-29-2019 Pneumococcal Vaccine : 65+ (2 of 2 - PPSV23 or PCV20) Pneumococcal Vaccine: 65+ (2 of 2 - PPSV23 or PCV20) [facility] Start: 01-19-2012 Shingrix Vaccine (2 of 3) Shingrix Vaccine (2 of 3) [facility] Start: 1993 Screening for malign ant neoplasm of colon [facility] Start: 1967 Urine microalbumin profile DTaP,Tdap,Td Vaccine (1 - Tdap) [facility] Start: 1968 Anxiety Screening Anxiety Screening [facility] Start: 1966 Depression Screening Depression Scre ening [facility] Start: 1966 Hepatitis C screening Hepatitis C Sc pato [facility] Protein measurement [facility] Immunizations Immunization Date Immunization Notes Care Provider Leni ramirez 02-19-2018 influenza virus vacc ine, unspecified formulation Marilu Martinez MD Work Phone: [facility] Payers Date Payer Category Payer Self-pay 2023 Medicare [employer] MEDICARE A ETNA MEDICARE PPO [id number] 2023-Present [phone] [address] [place] [address] PPO [id number] 2023 Medicare (Managed Care) [employer] [place] [id number] 2023 Private Health Insurance 101 [id number] Unknown [id number] Unknown [id number] Social History Date Type Detail Facility Start: 03-22-[facility]24 [facility] History of tobacco use Current smoker [facility] History of tobacco use Cigarette Smoker [facility] Start: 03-22-2024 Tobacco use and exposure Smokeless tobacco non-user [facility] Start: 03-22-2024 End: 09-09-2024 Alcoholic beverage intake Not Asked [facility] Start: 03-22-2024 End: 09-07-2024 History of Social function [facility] Start: 03-22-2024 End: 09-07-2024 Tobacco use panel [facility] National Score (1-100), lower number is lower risk 35 [facility] Start: 03-22-2024 Alcohol Comment Rarely [facility] Start: 1950 Sex assigned at Not on file C [facility] Tobacco smoking stat [facility] Unknown if ever smoked [facility] Work Phone: Start: 1950 Sex Assigned At Female W [facility] Clinical Notes 03-22-2024 to 09-12-2024 Howard Luke APRN.SENIOR STAFF CONSULTANT - 09/09/2024 11:44 AM EDTPatient InstructionsPatient InstructionsMarilu Martinez MD - 03/22/2024 11:19 AM EDT Note Date & Type Note Facility 09-12-2024 Note HNO ID: [id number] Author: EVERETTE REGAN PSYD Service: ? Author Type: Psychologist Type: Progress Notes Filed: 09/12/2024 14:09 Note Text: I reviewed the results of neuropsych testing with her and her . 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 I encouraged continued support with iADLs and recommended they establish care plans in the event of further decline. Her expressed a good understanding of the findings. I answered all of his questions. She had no questions. They discussed their plans for continued active engagement in life together. I have communicated my name and active licensure. The patient's identity and physical location were verified at the time of this visit. Either the patient or their legal vaccine customer representative has been informed of the risks and benefits of -- and alternatives to -- treatment through a remote evaluation and consents to proceed with the evaluation remotely. Time = 45 min, including face to face time with patient and family. Everette Regan PsyD, [facility]- Neuropsychology Section Neurological [place] [facility] 09-09-2024 Note HNO ID: [id number] Author: HOWARD LUKE APRN.SENIOR STAFF CONSULTANT Service: ? Author Type: Nurse Practitioner Type: Progress Notes Filed: 09/09/2024 11:49 Note Text: [facility] - FOLLOW UP EVALUATION Recording using CakeStyle software for draft documentation of the visit was discussed with the patient/authorized vaccine customer representative; all questions welcomed and answered. Patient/authorized vaccine customer representative agreed to proceed I had the pleasure of seeing Ms. Mcgovern for follow-up today. She is a 74 year old right-handed female with a history of PD since 2010. Subjective Interval History: Parkinson's Disease: - Diagnosed 16 years ago. - Managed with carbidopa/levodopa, taking 1.5 tablets 4-5 times daily if going out in the evening to prevent freezing and rigidity. When at home she feels like the evening time is short because when she starts moving slower she just goes to bed because its easier. - Takes 2 CR tablets at bedtime. - Experiences leg cramping at night, sometimes takes her first dose of Sinemet a little early to alleviate symptoms. - Followed by Dr. Peters in [place] every 6 months; last seen in May. - Engages in physical therapy, occupational therapy, and speech therapy monthly in [place] in past. - Participates in boxing exercises. - Experiences occasional dyskinesia in the head, which is not bothersome. - Has experienced freezing episodes in public settings. - provides verbal prompts to assist with mobility during freezing episodes. Dementia: - Noted decline in cognitive skills. does most iADL's. - Recent neuropsychological testing completed; follow-up appointment with Dr. Regan scheduled for Thursday. - No history of hallucinations. - Previously an avid reader; considering resuming reading activities. Nocturia: - Experiences frequent nocturia. - Previously took Vesicare, discontinued a few years ago due to side effects.Not interested in taking a medication for urinary urgency. Denies hallucinations, illusions, or delusions. Movement Disorders Medications Schedule - as of the start of the visit: Medications 8 11 200 500 7p bed Sinemet (carbidopa-levodopa) 25/100 1.5 1.5 1.5 1.5 1.5 Sinemet (carbidopa-levodopa) CR 25/100 2 midodrine 5 mg 1-2 times per day Vesicare Parkinson's Motor Complications Medication duration: 3.5 hours Wearing off: yes Painful off-state dystonia: no Dyskinesia: yes Prior Anti-Parkinson Therapies Carbidopa/Levodopa Carbidopa/Levodopa CR Questionnaires: In addition, the following areas that may be affected by abnormal involuntary movements were evaluated: Daily activities Difficulties with eatin (none) Difficulties in dressing: Yes (slight) Difficulties with hygiene activities: Yes (slight) Difficulties with handwritin (none) Difficulties with doing hobbies and other activities: Yes (slight) Difficulties turning in bed: Yes (slight) Difficulties getting out of bed, car or chair: Yes (mild) Tremors/Gait/Balance Shaking or tremors: Yes (slight) Walking and balance problems: Yes (mild) Number of falls in the Last Month: 0 Gait freezing: Yes (mild) Autonomic/Pain Lightheadeness on standing: Yes (slight) Urinary problems: Yes (slight) Constipation problems: Yes (slight) Pain and other sensations: Yes (slight) Speech/Swallowing Speech problems: Yes (mild) Droolin (none) Chewing and swallowing problems: 0 (none) Sleep/Fatigue Sleep problems: Yes (mild) Daytime sleepiness: Yes (slight) Fatigue: Yes (slight) Mood/Behavior Depression: PHQ-9 Score: 3 usually representing no significant (0-4) depression. Anxiety: ALPHONSE-7 Total Score: 4 usually representing no significant (0-4) anxiety. Finally, the following table shows the patient's overall global physical and mental health using the PROMIS scale: PROMIS-10 Flowsheet Row Office Visit from 09/09/2024 in Neurology Office Visit from 03/22/2024 in Neurology Global Physical Health T Score 47.7 54.1 Global Mental Health T Score 53.3 53.3 0-10 Standard Pain Scale 4 5 *PROMIS-10 scoring scale: mean = 50, over 50 is above average, under 50 is below average ALLERGIES Allergen Reactions Neomycin Rash Sulfa (Sulfonamide * Rash Thimerosal Rash Current Outpatient Medications Medication Sig carbidopa-levodopa (SINEMET 25-100) 25-100 mg per tablet Take 1.5 tablets by mouth 5 times per day.. clobetasol (TEMOVATE) 0.05 % ointment Apply topically 2 times daily to affected area for 2 weeks midodrine (PROAMITINE) 5 mg tablet Take 5 mg by mouth. carbidopa-levodopa CR (SINEMET CR) 25-100 mg per tablet Take 2 tablets by mouth once daily. At bedtime rivastigmine (EXELON PATCH) 4.6 mg/24 hour patch Apply 1 patch as directed once daily. Apply patch to skin and leave on for 24 hours. Then remove and place a patch at new site. rivastigmine (EXELON) 9.5 mg/24 hour patch Apply 1 patch as directed once daily. No curren (more content not included)... [facility] 09-09-2024 History of Present illness Narrative [facility] - FOLLOW UP EVALUATION Recording using CakeStyle software for draft documentation of the visit was discussed with the patient/authorized vaccine customer representative; all questions welcomed and answered. Patient/authorized vaccine customer representative agreed to proceed I had the pleasure of seeing Ms. Mcgovern for follow-up today. She is a 74 year old right-handed female with a history of PD since 2010. Subjective Interval History: Parkinson's Disease: - Diagnosed 16 years ago. - Managed with carbidopa/levodopa, taking 1.5 tablets 4-5 times daily if going out in the evening to prevent freezing and rigidity. When at home she feels like the evening time is short because when she starts moving slower she just goes to bed because its easier. - Takes 2 CR tablets at bedtime. - Experiences leg cramping at night, sometimes takes her first dose of Sinemet a little early to alleviate symptoms. - Followed by Dr. Peters in [place] every 6 months; last seen in May. - Engages in physical therapy, occupational therapy, and speech therapy monthly in [place] in past. - Participates in boxing exercises. - Experiences occasional dyskinesia in the head, which is not bothersome. - Has experienced freezing episodes in public settings. - provides verbal prompts to assist with mobility during freezing episodes. Dementia: - Noted decline in cognitive skills. does most iADL's. - Recent neuropsychological testing completed; follow-up appointment with Dr. Regan scheduled for Thursday. - No history of hallucinations. - Previously an avid reader; considering resuming reading activities. Nocturia: - Experiences frequent nocturia. - Previously took Vesicare, discontinued a few years ago due to side effects.Not interested in taking a medication for urinary urgency. Denies hallucinations, illusions, or delusions. Movement Disorders Medications Schedule - as of the start of the visit: Medications 8 11 200 500 7p bed Sinemet (carbidopa-levodopa) 25/100 1.5 1.5 1.5 1.5 1.5 Sinemet (carbidopa-levodopa) CR 25/100 2 midodrine 5 mg 1-2 times per day Vesicare Parkinson's Motor Complications Medication duration: 3.5 hours Wearing off: yes Painful off-state dystonia: no Dyskinesia: yes Prior Anti-Parkinson Therapies Carbidopa/Levodopa Carbidopa/Levodopa CR Questionnaires: In addition, the following areas that may be affected by abnormal involuntary movements were evaluated: Daily activities Difficulties with eatin (none) Difficulties in dressing: Yes (slight) Difficulties with hygiene activities: Yes (slight) Difficulties with handwritin (none) Difficulties with doing hobbies and other activities: Yes (slight) Difficulties turning in bed: Yes (slight) Difficulties getting out of bed, car or chair: Yes (mild) Tremors/Gait/Balance Shaking or tremors: Yes (slight) Walking and balance problems: Yes (mild) Number of falls in the Last Month: 0 Gait freezing: Yes (mild) Autonomic/Pain Lightheadeness on standing: Yes (slight) Urinary problems: Yes (slight) Constipation problems: Yes (slight) Pain and other sensations: Yes (slight) Speech/Swallowing Speech problems: Yes (mild) Droolin (none) Chewing and swallowing problems: 0 (none) Sleep/Fatigue Sleep problems: Yes (mild) Daytime sleepiness: Yes (slight) Fatigue: Yes (slight) Mood/Behavior Depression: PHQ-9 Score: 3 usually representing no significant (0-4) depression. Anxiety: ALPHONSE-7 Total Score: 4 usually representing no significant (0-4) anxiety. Finally, the following table shows the patient's overall global physical and mental health using the PROMIS scale: PROMIS-10 Flowsheet Row Office Visit from 09/09/2024 in Neurology Office Visit from 03/22/2024 in Neurology Global Physical Health T Score 47.7 54.1 Global Mental Health T Score 53.3 53.3 0-10 Standard Pain Scale 4 5 *PROMIS-10 scoring scale: mean = 50, over 50 is above average, under 50 is below average ALLERGIES Allergen Reactions Neomycin Rash Sulfa (Sulfonamide * Rash Thimerosal Rash Current Outpatient Medications Medication Sig carbidopa-levodopa (SINEMET 25-100) 25-100 mg per tablet Take 1.5 tablets by mouth 5 times per day.. clobetasol (TEMOVATE) 0.05 % ointment Apply topically 2 times daily to affected area for 2 weeks midodrine (PROAMITINE) 5 mg tablet Take 5 mg by mouth. carbidopa-levodopa CR (SINEMET CR) 25-100 mg per tablet Take 2 tablets by mouth once daily. At bedtime rivastigmine (EXELON PATCH) 4.6 mg/24 hour patch Apply 1 patch as directed once daily. Apply patch to skin and leave on for 24 hours. Then remove and place a patch at new site. rivastigmine (EXELON) 9.5 mg/24 hour patch Apply 1 patch as directed once daily. No current facility-administered medications for this visit. Objective Vital Signs: BP 122/72 (BP Site: Left Arm, BP Position: Sitting, BP Cuff Size: Regular Adult) Pulse 71 Ht 167.6 cm (5' 6) Wt 57.3 kg (126 lb 5.2 oz) SpO2 99% BMI 20.39 kg/m Orthostatic Vitals: Standing: BP 104/66 Pulse 78 Weight: 57.3 kg (126 lb 5.2 oz) Height: 167.6 cm (5' 6) No LMP recorded. Patient has had a hysterectomy. Body mass index is 20.39 kg/m . Movement Disorders Scales Performed: MDS-UPDRS Motor subscale condition of exam Medication Off/On/Naiive ON Time of UPDRS 1056 Time of Last Medication 1000 Last Medication Taken 1.5 tab Sinemet 25/100 DBS Right N/A DBS Left N/A MDS-UPDRS Motor subscale scores Speech 0-Normal. No speech problems. Facial Expression 0-Normal. Normal facial expression. Rigidity Neck 0-Normal. No rigidity. Rigidity Right Upper Extremity 0-Normal. No rigidity. Rigidity Left Upper Extremity 0-Normal. No rigidity. Rigidity Right Lower Extremity 0-Normal. No rigidity. Rigidity Left Lower Extremity 0-Normal. No rigidity. Finger Taps Right 1-Slight. a) the regular rhythm is broken with one or two interruptions or hesitations of the tapping movement, b) slight slowing, c) the amplitude decrements near the end of the 10 taps. Finger Taps Left 1-Slight. a) the regular rhythm is broken with one or two interruptions or hesitations of the tapping movement, b) slight slowing, c) the amplitude decrements near the end of the 10 taps. Hand Movements Right 1-Slight. a) the regular rhythm is broken with one or two interruptions or hesitations of the movement, b) slight slowing, c) the amplitude decrements near the end of the task. Hand Movements Left 1-Slight. a) the regular rhythm is broken with one or two interruptions or hesitations of the movement, b) slight slowing, c) the amplitude decrements near the end of the task. Arm Movements Right 1-Slight. a) the regular rhythm is broken with one or two interruptions or hesitations of the movement, b) slight slowing, c) the amplitude decrements near the end of the sequence. Arm Movements Left 2-Mild. a) 3 to 5 interruptions during the movements, b) mild slowing, c) the amplitude decrements midway in the sequence. Toe Taps Right 1-Slight. a) the regular rhythm is broken with one or two interruptions or hesitations of the tapping movement, b) slight slowing, c) the amplitude decrements near the end of the ten taps. Toe Taps Left 2-Mild. a) 3 to 5 interruptions during the tapping movements, b) mild slowing, c) the amplitude decrements midway in the task. Leg Agility Right 0-Normal. No problems. Leg Agility Left 0-Normal. No problems. Arise From Chair 0-Normal. No problems. Able to arise quickly without hesitation. Gait 1-Slight. Independent walking with minor gait impairment. Gait Freezing 0-Normal. No freezing. Posture Stability 0-Normal. No problems: recovers with one or two steps. (deferred) Posture 0-Normal. No problems. Body Bradykinesia 0-Normal. No problems. Postural Tremor Hand Right 0-Normal. No tremor. Postural Tremor Hand Left 0-Normal. No tremor. Kinetic Tremor Right 0-Normal. No tremor. Kinetic Tremor Left 0-Normal. No tremor. Rest Tremor Amplitude Right Upper Extremity 0-Normal. No tremor. Rest Tremor Amplitude Left Upper Extremity 0-Normal. No tremor. Rest Tremor Amplitude Right Lower Extremity 0-Normal. No tremor. Rest Tremor Amplitude Left Lower Extremity 0-Normal. No tremor. Rest Tremor Amplitude Lip/Jaw 0-Normal. No tremor. Rest Tremor Constancy 0-Normal. No tremor. MDS-UPDRS Motor subscale totals Left Total 6 Right Total 4 Midline Total 1 Tremor Total / 10 0 PIGD Total / 3 1 Overall Total 11 Change Better/Worse WORSE % Change Compared to Last Filed Total (!) 175 Assessment and Plan: Assessment Ms. Mcgovern is a right-handed 74 year old year old female with PD. Previously followed at [facility] in [facility]. Moved to [place] to be closer to family and plans to maintain care in both [place] and [place]. The following are the current problems noted and addressed during this visit: Parkinson's disease with dyskinesia and fluctuating manifestations (hcc) (primary encounter diagnosis) Dementia due to parkinson's disease, without behavioral disturbance, psychotic disturbance, mood disturbance, or anxiety, unspecified dementia severity (hcc) Urinary urgency Plan 09/09/2024 Visit: 1. Dementia due to Parkinson's disease, without behavioral disturbance, psychotic disturbance, mood disturbance, or anxiety, unspecified dementia severity (HCC) (G20.A1) - Recent neuropsychological testing confirms diagnosis. - Initiated Exelon patch 4.6 mg daily for one month, then increase to 9.5 mg daily. - Educated on application: apply patch for 24 hours, then remove, clean the area, and rotate to a different site (chest, arms, shoulders, abdomen, back). - Discussed potential side effects, including dizziness; advised to report any adverse effects. - Follow-up scheduled in 3 months via virtual visit to assess response to treatment. 2. Parkinson's disease with dyskinesia and fluctuating manifestations (HCC) (G20.B2) - Current regimen includes Carbidopa/Levodopa immediate release 1.5 tablets five times daily and Carbidopa/Levodopa CR 2 tablets at bedtime. - Advised to consistently administer the fifth dose of immediate release in the evening to prevent nocturnal symptoms. - Mild dyskinesia observed, not bothersome to the patient; no immediate intervention required. - Discussed importance of maintaining consistent dosing intervals, approximately 3 hours apart during the day. - Continue monitoring for any changes in motor symptoms or side effects. Interested in clinical research? Not discussed Updated Movement Disorders Medication Schedule: Medications 8 11 200 500 7p bed Sinemet (carbidopa-levodopa) 25/100 1.5 1.5 1.5 1.5 1.5 Sinemet (carbidopa-levodopa) CR 25/100 2 Exelon Patch 4.6 mg x 1 month Exelon Patch 9.5mg midodrine 5 mg 1-2 times per day Return at or around: 12/09/24 Level of service : 28913 (40-68 min). Time spent 59 min on the day of service, which included preparing to see the patient, [id number] patient care, completing clinical documentation, obtaining and/or reviewing separately obtained history, performing a medically appropriate examination, counseling and educating the patient/family/caregiver, and ordering medications, tests, or procedures. Thank you for allowing me to be part of the clinical care of this patient! I look forward to continued participation in the patient s care with you. Please do not hesitate to call with any questions. Sincerely, Howard Luke APRN.CNP documented in this encounter [facility] 09-09-2024 Instructions Howard Luke APRN.CNP - 09/09/2024 11:27 AM EDT Continue taking your Sinemet 25/100 as prescribed - 1 tablets five times a day, and Sinemet CR 2 tablets at bedtime. Begin the memory medication with your Exelon patch. Start with the 4.6-mg patch: Apply a new patch each day (wear it for 24 hours, then remove, wipe the skin, and rotate the application site). Use this dose for one month, then switch to the 9.5-mg patch as prescribed. Your Exelon patch prescription has been sent to [facility] in [place]. Use proper patch rotation each day. Attend your scheduled virtual neuropsychological testing review with Dr. Regan on Thursday. -Make sure you are drinking 6-8 glasses of water a day. Follow up in 3 months with me - If you experience any new side effects--such as dizziness or skin irritation from the patch--or have any other concerns, please call the provided number or send a message through [employer]. documented in this encounter [facility] 08-03-2024 Note HNO ID: [id number] Author: EVERETTE REGAN PSYD Service: ? Author Type: Psychologist Type: Progress Notes Filed: 08/09/2024 10:57 Note Text: [facility] Neurological [place] Section of Neuropsychology Neuropsychological Evaluation Report CONFIDENTIAL Patient: Anne Mcgovern Age: [age] year old : 1950 Sex: female Date of Evaluation: 08/03/2024 History and Presenting Problem: Mrs. Anne Mcgovern is a 74 year old woman with Parkinson's disease referred for evaluation of cognitive and memory changes. She was accompanied by her . She recently moved from [place] to [place] (July 2023), though she will continue to live in [place] during the winter. She was scheduled to undergo neuropsychological testing in [place], but it was not completed before she moved to [place]. Testing was order based on a cognitive screening test and her reports of cognitive and memory changes. During the evaluation today, she frequently looked to her to provide information/answers, as she was unable to do so herself. She stated that she forgets some details of conversations. She can repeat herself. She sometimes misplaces things. Her now tracks events/appts for her, because she was having difficulties. Her remote memory is good. She does well with the names of family and friends. She has problems with word finding. She likes reading, but she reads less than she used to. She is slower with reading, but she can focus well and does not need to re-read things. She has difficulties with concentration and attention, even if there are no distractions. She is easily distracted. Her mind does not wander in conversation, but she has difficulties tracking TV and movie plots. She is having difficulties with organization. She attributed this to not having enough time to keep organized, but she was unable to describe what occupies most of her time. She indicated that her time is spent managing paperwork related to insurance, but could provide no other details.She feels cognitively slow. She has difficulties making simple decisions and relies on her . Overall, she believes that she has experienced a moderate degree of cognitive changes over time. Her indicated that she was in good cognitive health until 2 years ago. ADLS: Her took over the finances, medications, and cooking 2 years ago. She is not driving. She is independent with her basic ADLs. She has not been exercising, but she is planning on starting [employer] with a PD group this week. She will also be starting a PD exercise program. Her is looking to set up private 1:1 PT/OT for her in [place]. She is starting to walk more now that the weather is improving. Neuropsychiatric Symptoms: She denied depression or general anxiety. She denied hallucinations of all types. She infrequently experiences a sense of presence. She denied suicidal ideation. Sleep: She denied problems with sleep onset or maintenance. She used to have nightmares, but she has less now. She has nocutria, but can return to sleep. Medical History: She denied a history of head injury, stroke, seizure, or cancer. There is no problem list on file for this patient. Current Outpatient Medications on File Prior to Visit Medication Sig carbidopa-levodopa (SINEMET 25-100) 25-100 mg per tablet TAKE 1 AND 1/2 TABLETS BY MOUTH 4 TIMES A DAY clobetasol (TEMOVATE) 0.05 % ointment Apply topically 2 times daily to affected area for 2 weeks estradiol (CLIMARA) 0.06 mg/24 hr patch midodrine (PROAMITINE) 5 mg tablet Take 5 mg by mouth. ofloxacin (OCUFLOX) 0.3 % ophthalmic solution APPLY 1 DROP IN LEFT EYE 4 TIMES A DAY. USE IN OPERATIVE EYE 4 TIMES A DAY STARTING 3 DAYS PRIOR TO SURGERY AND CONTINUE AFTER SURGERY solifenacin (VESICARE) 10 mg tablet Coenzyme [id number] E 100-5 mg-unit cap Take by mouth. carbidopa-levodopa CR (SINEMET CR) 25-100 mg per tablet Take 2 tablets by mouth once daily. At bedtime No current facility-administered medications on file prior to visit. Pain: She denied significant and/or disruptive pain, except for leg cramping at night. Alcohol: Rarely (1x a month) Tobacco: Denied Illicit Drugs: Denied Family History: Her mother had Alzheimer's disease and received professional care for the last 15 years of her life. Educational AND Occupational History: She denied a history of learning or academic difficulty. She graduated from high school. She completed classes in technical school. 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 Social History: She lives with her . She has two step-children in [place]. She has great nieces who live locally. Her have a lot of family in the area. Behavioral Observations: She was appropriately dressed and well-groomed. Speech was normal during conversation. Language was notable for word finding deficits. Vision with glasses and hearing were adequate for the purposes of this kenyon (more content not included)... [facility] 03-22-2024 Instructions Marilu Martinez MD - 03/22/2024 12:01 PM EDT Images from the original note were not included. It was a pleasure to see you today. We addressed the following diagnoses: Parkinson's disease with dyskinesia and fluctuating manifestations (hcc) (primary encounter diagnosis) My recommendations are as follows: Parkinson's medications - increase the bedtime carbidopa-levodopa CR dose to 2 tabs to extend the effect through the night. It is ok to take another 1 to 1.5 tabs around 7pm as you have been doing when you are social. Continue exercise For the blood pressure - measures as we discussed to increase the water intake. No change to midodrine For the fatigue - talk to your primary care doctor about it to rule out causes like vitamin deficiencies, etc that can be treated. See additional information about fatigue below Neuropsychological testing ordered Movement Disorders Medication Schedule: Medications 8 11 200 500 7p bed 2-5AM Sinemet (carbidopa-levodopa) 25/100 1.5 1.5 1.5 1.5 1-1.5 as needed 1 as needed for leg tightness Sinemet (carbidopa-levodopa) CR 25/100 2 midodrine 5 mg 1-2 times per day Vesicare No follow-ups on file. If there are any concerns before your next visit, please call or you can send a message through [employer]. You can also now schedule and select appointments through [employer]. Mrailu Martinez MD Fatigue and Parkinson s If you experience fatigue and sleep problems, you are not alone. These are common symptoms of Parkinson s disease (PD). In fact, fatigue can occur at any stage of Parkinson s, and many people report that fatigue is one of the symptoms that affects them the most. It can have a greater impact on your quality of life than motor symptoms like stiffness, slowness or walking problems. But doctors don t always ask about fatigue, and people with Parkinson s and their care partners don t always know to bring it up. So how can you cope with and manage fatigue to feel your best? First, it is important to understand the causes. Then you can learn strategies to ease its impact. What Is Fatigue? Fatigue is a feeling of being extremely tired, of being either physically or mentally weary. Most people talk about fatigue as a result of some type of exertion--being tired from working or from thinking--but sometimes it is there all the time. It is different than sleepiness. When you re sleepy, you want to fall asleep and can do so easily. No matter how extreme, fatigue does not usually result in sleep, even in sedentary situations. People who are fatigued struggle to get through normal daily activities. They have difficulty concentrating and sleeping, decreased stamina, issues with memory and productivity, and even anxiety and depression. You might find yourself skipping social engagements because you feel like you just don t have the energy or motivation. If you notice any of these symptoms and feel fatigued, talk to your healthcare provider. Causes of Fatigue Biology In Parkinson s, fatigue is not just your body s reaction to PD symptoms, or not sleeping well. Fatigue can be a result of the same brain changes that lead to motor symptoms, though the level of fatigue is not necessarily related to the severity of motor symptoms. People who have severe fatigue early in their Parkinson s tend to stay fatigued. Lifestyle While it might sound counterintuitive, not exercising and leading a sedentary lifestyle can actually increase your fatigue. Tip: Fight Parkinson s and fatigue by exercising at least 2.5 hours per week for a better quality of life. Medications Dopamine agonists (e.g., ropinirole/Mirapex and pramipexole/Requip) can cause fatigue and daytime sleepiness. Tip: Reducing these medication may help. However, it is a delicate balance between good motor symptom control and excessive fatigue. Akinesia Akinesia, or trouble starting a movement, often feels like fatigue. A person with this symptom must move slowly and will find it hard to finish a task in a regular amount of time. Everyday tasks such as getting dressed can take a lot of effort, as it takes more concentration to perform tasks that are no longer automatic. Tip: Keep track of times during the day when akinesia is better and medications are working well. Energy-consuming tasks can then be done at these times when movement is easier. Muscle Fatigue PD symptoms like muscle stiffness, cramping, tremor or shaking, and akinesia put stress on a person s muscles. To move with these symptoms, muscles have to work hard and often against each other. With tremor, the constant shaking can quickly fatigue muscles. On the other hand, muscles that do not move enough are not well-conditioned, and they can become smaller (atrophied). Loss of muscle strength decreases stamina and endurance. For many people, this decrease feels like fatigue. Tip: As described above, some Parkinson s motor symptoms can cause fatigue. Anti-Parkinson s medications treat motor symptoms, which in turn can help reduce fatigue. However, after being on dopaminergic therapy for a while, many people experience dyskinesia (fidgety, involuntary movements). Like tremor, these movements can also cause fatigue. The only treatment available to keep muscles well-conditioned is a regular exercise program. People who include exercise as a part of their daily routine have less fatigue! Changes in Mobility Many people with Parkinson s disease experience changes in their ability to move throughout the day. These changes are often related to when you take your medications. You are better able to move after your medications take effect, and you might find it more difficult to move as the medication wears off, before your next dose. Tip: Often, people try to get everything done in the morning after their first dose of medication, when they feel well and rested. But too much activity in the morning can lead to fatigue. Time your periods of activity for maximum mobility, but also pace yourself and allow for rest periods. Insomnia Some sleep disorders, like sleep apnea and restless legs syndrome, contribute to daytime sleepiness, but people with insomnia complain of fatigue. Tip: If nighttime insomnia is a problem, avoid naps during the day, which can make you less sleepy at night. Depression It is estimated that at least 50% of people with Parkinson s will experience some form of depression during their illness. Fatigue is a common symptom of depression and is often reported as a lack of motivation or a loss of energy. Tip: A combination of counseling and medication is most effective at treating depression. When successful, people begin to feel less tired and are more willing to participate fully in activities. Working with Your Healthcare Provider to Manage Fatigue If you are experiencing fatigue, ask yourself the following questions. Record the answers in a notebook or on your smartphone, and bring this information to your next doctor s appointment. When do I feel fatigued? How long do my feelings of fatigue last each day? Does my fatigue change with my PD symptoms? Does my fatigue change with the time that I take my medications? On a scale of one to ten, how fatigued am I in the morning, around noon, and in the afternoon? The answers to these questions can help you and your doctor work together to identify possible causes of the fatigue you are experiencing. To understand and address it, and to rule out non-Parkinson s causes, your healthcare provider will take a complete health history and do a physical exam. Sometimes problems not associated with PD, such as anemia, can explain the fatigue. If necessary, Parkinson s medications can be adjusted. The Parkinson s Foundation is committed to better understanding how to help people with PD overcome Fatigue. In 2017, we provided funding to two researchers studying fatigue. Danni Hernandez, Ph.D. at [facility] is studying Multi-modal Neuroimaging of Fatigue in Parkinson s Disease. This study will use neuroimaging to observe the brain changes underlying fatigue and will explore the use of blue light as a potential treatment. A therapy exposing the eyes to blue light has proven to decrease daytime sleepiness in people with traumatic brain injuries. This study will explore whether this remedy may also be beneficial for in people with PD. Brendan Jordan M.D. at [facility] is studying Remotely Supervised Transcranial Direct Current Stimulation (tDCS) for At-home Treatment of Fatigue and Cognitive Slowing in Parkinson s Disease This study looks at whether a non-invasive, brain stimulation device paired with online cognitive training could alleviate fatigue and cognitive slowing in people with PD. This study uses a specially designed tDCS device through a new method of remote supervision. Treating Fatigue Medications for Parkinson s motor symptoms do not necessarily improve fatigue, although one study found that levodopa slowed the worsening of fatigue. Research in this area is in its early stages. Testosterone replacement and modafinil were tested but proved unsuccessful in the treatment of fatigue. In a small trial, methylphenidate (Ritalin) was found to be effective, but this and other stimulants have not been approved for treating Parkinson s disease. More studies are needed. To date, exercise is the best known therapy for fatigue. People with Parkinson s often say that they are too fatigued to exercise, but you will likely find that you actually feel more energetic after you exercise! When exercising, you should have reasonable expectations. Start slowly by walking or using an exercise bicycle for five minutes, and build up to 30 minutes a day. Done safely, there is no down side to exercise. It not only helps improve fatigue, but also can have a positive impact on overall sense of well-being, depression and sleep quality at night. Maximize Energy and Endurance Try to identify and reduce the major sources of stress and fatigue in your daily routine. Exercise regularly to build endurance and stamina. Keep mentally active. Boredom often leads to fatigue. Schedule adequate time for rest and sleep in your daily routine. Plan the highest level of activity and the most difficult daily tasks at times you are well rested and medications are working well. Take frequent breaks. Know your limits. Forcing too many activities into one time period will cause fatigue. Get help when needed. Delegate or hire help for tasks you find particularly stressful or tiring. Involve Your Team. Consult with an occupational therapist for an assessment and individual recommendations for energy conservation and enhancement. This is a patient education material provided by the Parkinson s Foundation. For more information and resources see https://www.parkinson.org/. [facility] is a Center of Excellence for the Parkinson s Foundation. documented in this encounter [facility] 03-22-2024 History of Present illness Narrative [facility] - NEW PATIENT EVALUATION No referring provider defined for this encounter. I had the pleasure of evaluating Ms. Mcgovern to our clinic today. As you know she is a 73 year old right-handed female who is seen for evaluation of PD since 2010. She is seen with her . Subjective HISTORY OF PRESENT ILLNESS: Initial HPI Here to establish care. Moved to [place] from [place] in July 2023. 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 Plans to leave for [place] in May, visit multiple friends until July. Will resume therapy when they get to [place]. PD started 2010 with left hand tremor. Doesn't notice any symptoms on the right side. Wanting neuropsychological testing. Screening in the neurologist office reportedly indicated mild impairment. Cannot draw the clock. Was scheduled in [place] but unable to get it completed before they moved to [place]. She loses her train of thought. Needs repetition. Delayed recall. Friends are patient with her in conversation. Was going to do cognitive therapy in [place] but ran out of time before they left. Exercises, boxing class, etc. [place] PD exercise classes. Very active socially. 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 Question if levodopa pump has been approved. Has off time. About once per week takes extra 1 to 1.5 tabs around 7p if they have a social engagement. Has forgotten the bedtime CR and legs are tighter. Not sure it is helping/lasting long enough. Takes another 1 tab Sinemet in the middle of the night sometimes for leg tightness. Not wearing off during the day. Head of bed is elevated for NOH. sleeps in another room. On midodrine. Low BP in the mornings. Little lightheaded with orthostatics today. No falls. No syncope. In 2022 she was falling due to syncope. Doesn't get enough water. Drinks Propel. Doesn't like Gatorade. Movement Disorders Medications Schedule - as of the start of the visit: Medications 8 11 200 500 7p bed 2-5AM Sinemet 25/100 1.5 1.5 1.5 1.5 1-1.5 as needed 1 as needed for leg tightness Sinemet CR 25/100 1 midodrine 5 mg 1-2 times per day Vesicare Parkinson's Motor Complications Medication duration: 3.5 hours Wearing off: yes Dyskinesia: yes Prior Anti-Parkinson Therapies Carbidopa/Levodopa Carbidopa/Levodopa CR Questionnaires: In addition, the following areas that may be affected by abnormal involuntary movements were evaluated: Daily activities Difficulties with eatin (none) Difficulties in dressing: Yes (slight) Difficulties with hygiene activities: Yes (slight) Difficulties with handwritin (none) Difficulties with doing hobbies and other activities: Yes (slight) Difficulties turning in bed: Yes (slight) Difficulties getting out of bed, car or chair: Yes (mild) Tremors/Gait/Balance Shaking or tremors: Yes (slight) Walking and balance problems: Yes (mild) Number of falls in the Last Month: 0 Gait freezing: Yes (moderate) Autonomic/Pain Lightheadeness on standin (none) Urinary problems: Yes (mild) Constipation problems: Yes (slight) Pain and other sensations: Yes (slight) Speech/Swallowing Speech problems: Yes (slight) Droolin (none) Chewing and swallowing problems: 0 (none) Sleep/Fatigue Sleep problems: Yes (moderate) Daytime sleepiness: Yes (mild) Fatigue: Yes (slight) Mood/Behavior Depression: Anxiety: ALPHONSE-7 Total Score: 5 usually representing mild (5-9) anxiety. Finally, the following table shows the patient's overall global physical and mental health using the PROMIS scale: PROMIS-10 Flowsheet Row Office Visit from 03/22/2024 in Neurology Global Physical Health T Score 54.1 Global Mental Health T Score 53.3 0-10 Standard Pain Scale 5 *PROMIS-10 scoring scale: mean = 50, over 50 is above average, under 50 is below average Review of Systems Review of Systems Constitutional Positive for Fatigue Negative for Fevers, Night Sweats, Weight Gain and Weight Loss Eyes Negative for Change in vison not corrected by glasses and Vision loss or change Hent Positive for Tinnitus and Recent change in speech or voice Negative for Hearing Loss and Difficulty Swallowing Cardiovascular Positive for Lightheadedness Negative for Chest Pain and Leg pain with walking Respiratory Negative for SOB at rest, SOB with exertion, Cough, Wheezing and Snoring GI Negative for Blood in Stool, Abdominal Pain, Diarrhea, Constipation, Nausea/Vomiting and Heartburn Positive for Urgency Negative for Incontinence Endocrine Negative for Heat Intolerance and Excessive Thirst Musculoskeletal Negative for Back Pain, Joint Swelling, Stiff Joints and Muscle Pain Integumentary Negative for Rashes, Itching and Hair Changes Heme/Lymph Negative for Prolonged Bleeding, Easy Bruising and Swelling of Arm or Leg Allergy/Immunologic Negative for Nasal Congestion and Swollen Nodes Neurologic Positive for Memory Problems and Numbness/Tingling Negative for Headache, Weakness, Double Vision, Trouble Swallowing and Slurred Speech Psychiatric Positive for Stress or Conflicts and Anxiety Negative for Depression, Irritability, Hallucinations and Delusions Patient's Review of Systems has been reviewed with the patient and updated as appropriate. ALLERGIES Allergen Reactions Neomycin Rash Sulfa (Sulfonamide * Rash Thimerosal Rash Current Outpatient Medications Medication Sig carbidopa-levodopa (SINEMET 25-100) 25-100 mg per tablet TAKE 1 AND 1/2 TABLETS BY MOUTH 4 TIMES A DAY clobetasol (TEMOVATE) 0.05 % ointment Apply topically 2 times daily to affected area for 2 weeks estradiol (CLIMARA) 0.06 mg/24 hr patch midodrine (PROAMITINE) 5 mg tablet Take 5 mg by mouth. ofloxacin (OCUFLOX) 0.3 % ophthalmic solution APPLY 1 DROP IN LEFT EYE 4 TIMES A DAY. USE IN OPERATIVE EYE 4 TIMES A DAY STARTING 3 DAYS PRIOR TO SURGERY AND CONTINUE AFTER SURGERY solifenacin (VESICARE) 10 mg tablet Coenzyme Q68-[id number] E 100-5 mg-unit cap Take by mouth. carbidopa-levodopa CR (SINEMET CR) 25-100 mg per tablet Take 2 tablets by mouth once daily. At bedtime No current facility-administered medications for this visit. Past Medical and Surgical History: has a past medical history of Crohn disease (HCC). has a past surgical history that includes hysterectomy hx. Social History Tobacco Use Smoking status: Former Types: Cigarettes Smokeless tobacco: Never Substance Use Topics Drug use: Never Family History: family history is not on file. Objective Vital Signs: Ht 167.6 cm (5' 6) Wt 56 kg (123 lb 7.3 oz) SpO2 98% BMI 19.93 kg/m Orthostatic Vitals: Sitting: BP 95/58 Pulse 78 Standing: BP 82/50 Pulse 86 Weight: 56 kg (123 lb 7.3 oz) Height: 167.6 cm (5' 6) No LMP recorded. Patient has had a hysterectomy. Body mass index is 19.93 kg/m . General Physical Examination: General: Awake, alert, interactive, no acute distress, good nutritional status, normal development, well-kept General Neurological Examination: Neurological Exam Mental Status Awake and alert. Language is fluent with no aphasia. Majority of history from . Cranial Nerves CN III, IV, : Extraocular movements intact bilaterally. CN V: Facial sensation is normal. CN VII: Full and symmetric facial movement. CN VIII: Hearing is normal. CN XI: Shoulder shrug strength is normal. CN XII: Tongue midline without atrophy or fasciculations. Motor Right Left Shoulder abduction 5 5 Elbow flexion 5 5 Wrist extension 5 5 Hip flexion 5 5 Dorsiflexion 5 5 Sensory Light touch is normal in upper and lower extremities. Coordination Right: [id number] normal. Rapid alternating movement normal.Left: Wjweww-[id number] normal. Rapid alternating movement normal. Movement Disorders Scales Performed: MDS-UPDRS Motor subscale condition of exam Medication Off/On/Naiive Time of UPDRS 1214 Time of Last Medication 1000 Last Medication Taken DBS Right DBS Left MDS-UPDRS Motor subscale scores Speech 1-Slight. Loss of modulation, diction or volume, but still all words easy to understand. Facial Expression 0-Normal. Normal facial expression. Rigidity Neck 0-Normal. No rigidity. Rigidity Right Upper Extremity 0-Normal. No rigidity. Rigidity Left Upper Extremity 0-Normal. No rigidity. Rigidity Right Lower Extremity 0-Normal. No rigidity. Rigidity Left Lower Extremity 0-Normal. No rigidity. Finger Taps Right 1-Slight. a) the regular rhythm is broken with one or two interruptions or hesitations of the tapping movement, b) slight slowing, c) the amplitude decrements near the end of the 10 taps. Finger Taps Left 0-Normal. No problems. Hand Movements Right 1-Slight. a) the regular rhythm is broken with one or two interruptions or hesitations of the movement, b) slight slowing, c) the amplitude decrements near the end of the task. Hand Movements Left 1-Slight. a) the regular rhythm is broken with one or two interruptions or hesitations of the movement, b) slight slowing, c) the amplitude decrements near the end of the task. Arm Movements Right 0-Normal. No problems. Arm Movements Left 0-Normal. No problems. Toe Taps Right 0-Normal. No problem. Toe Taps Left 0-Normal. No problem. Leg Agility Right 0-Normal. No problems. Leg Agility Left 0-Normal. No problems. Arise From Chair 0-Normal. No problems. Able to arise quickly without hesitation. Gait 0-Normal. No problems. Gait Freezing 0-Normal. No freezing. Posture Stability 0-Normal. No problems: recovers with one or two steps. (deferred) Posture 0-Normal. No problems. Body Bradykinesia 0-Normal. No problems. Postural Tremor Hand Right 0-Normal. No tremor. Postural Tremor Hand Left 0-Normal. No tremor. Kinetic Tremor Right 0-Normal. No tremor. Kinetic Tremor Left 0-Normal. No tremor. Rest Tremor Amplitude Right Upper Extremity 0-Normal. No tremor. Rest Tremor Amplitude Left Upper Extremity 0-Normal. No tremor. Rest Tremor Amplitude Right Lower Extremity 0-Normal. No tremor. Rest Tremor Amplitude Left Lower Extremity 0-Normal. No tremor. Rest Tremor Amplitude Lip/Jaw 0-Normal. No tremor. Rest Tremor Constancy 0-Normal. No tremor. MDS-UPDRS Motor subscale totals Left Total 1 Right Total 2 Midline Total 1 Tremor Total / 10 0 PIGD Total / 3 0 Overall Total 4 % Change Compared to Last Filed Total Assessment and Plan: Assessment Ms. Mcgovern is a right-handed 73 year old year old female with PD. Previously followed at [facility] in [facility]. Moved to [place] to be closer to family and plans to maintain care in both [place] and [place]. - cognitive impairment: neuropsychological testing was planned in [place] but unable to be completed. Will complete in [place], order entered. - Parkinson's: she looks very well from a motor standpoint. She notices off time only in the evenings and overnight. Her started an extra 1 tablet of Sinemet around 7 PM when they have social events planned and this works well. Her current dose of Sinemet CR is not holding her overnight so we will increase it. We discussed the recent approval of Crexont. She currently is only bothered by fluctuations in the evening we will try to address it using the medication she is already on. We also discussed the recent approval of the subcutaneous levodopa pump. She is not currently having enough off time for this to make sense and does not want to be attached to a pump. -Orthostatic hypotension: Continue midodrine. Discussed the importance of sufficient daily fluid intake The following are the current problems noted and addressed during this visit: Parkinson's disease with dyskinesia and fluctuating manifestations (hcc) (primary encounter diagnosis) Plan 03/22/2024 Visit: Parkinson's medications - increase the bedtime carbidopa-levodopa CR dose to 2 tabs to extend the effect through the night. It is ok to take another 1 to 1.5 tabs around 7pm as you have been doing when you are social. Continue exercise For the blood pressure - measures as we discussed to increase the water intake. No change to midodrine For the fatigue - talk to your primary care doctor about it to rule out causes like vitamin deficiencies, etc that can be treated. See additional information about fatigue below Neuropsychological testing ordered Updated Parkinson's Medication Schedule: Medications 8 11 200 500 7p bed 2-5AM Sinemet (carbidopa-levodopa) 25/100 1.5 1.5 1.5 1.5 1-1.5 as needed 1 as needed for leg tightness Sinemet (carbidopa-levodopa) CR 25/100 2 midodrine 5 mg 1-2 times per day [facility] Level of service : 96990 (60-88) min). Time spent 84 min on the day of service, which included preparing to see the patient, [id number] patient care, completing clinical documentation, obtaining and/or reviewing separately obtained history, performing a medically appropriate examination, counseling and educating the patient/family/caregiver, and ordering medications, tests, or procedures. Thank you for allowing me to be part of the clinical care of this patient! I look forward to continued participation in the patient s care with you. Please do not hesitate to call with any questions. Sincerely, Marliu Martinez MD documented in this encounter [facility] 03-22-2024 Note HNO ID: [id number] Author: MARILU MARTINEZ MD Service: ? Author Type: Physician Type: Progress Notes Filed: 03/22/2024 20:26 Note Text: [facility] - NEW PATIENT EVALUATION No referring provider defined for this encounter. I had the pleasure of evaluating Ms. Mcgovern to our clinic today. As you know she is a 73 year old right-handed female who is seen for evaluation of PD since 2010. She is seen with her . Subjective HISTORY OF PRESENT ILLNESS: Initial HPI Here to establish care. Moved to [place] from [place] in July 2023. 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 Plans to leave for [place] in May, visit multiple friends until July. Will resume therapy when they get to [place]. PD started 2010 with left hand tremor. Doesn't notice any symptoms on the right side. Wanting neuropsychological testing. Screening in the neurologist office reportedly indicated mild impairment. Cannot draw the clock. Was scheduled in [place] but unable to get it completed before they moved to [place]. She loses her train of thought. Needs repetition. Delayed recall. Friends are patient with her in conversation. Was going to do cognitive therapy in [place] but ran out of time before they left. Exercises, boxing class, etc. [place] [employer] exercise classes. Very active socially. 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 Question if levodopa pump has been approved. Has off time. About once per week takes extra 1 to 1.5 tabs around 7p if they have a social engagement. Has forgotten the bedtime CR and legs are tighter. Not sure it is helping/lasting long enough. Takes another 1 tab Sinemet in the middle of the night sometimes for leg tightness. Not wearing off during the day. Head of bed is elevated for NOH. sleeps in another room. On midodrine. Low BP in the mornings. Little lightheaded with orthostatics today. No falls. No syncope. In 2022 she was falling due to syncope. Doesn't get enough water. Drinks Propel. Doesn't like Gatorade. Movement Disorders Medications Schedule - as of the start of the visit: Medications 8 11 200 500 7p bed 2-5AM Sinemet 25/100 1.5 1.5 1.5 1.5 1-1.5 as needed 1 as needed for leg tightness Sinemet CR 25/100 1 midodrine 5 mg 1-2 times per day Vesicare Parkinson's Motor Complications Medication duration: 3.5 hours Wearing off: yes Dyskinesia: yes Prior Anti-Parkinson Therapies Carbidopa/Levodopa Carbidopa/Levodopa CR Questionnaires: In addition, the following areas that may be affected by abnormal involuntary movements were evaluated: Daily activities Difficulties with eatin (none) Difficulties in dressing: Yes (slight) Difficulties with hygiene activities: Yes (slight) Difficulties with handwritin (none) Difficulties with doing hobbies and other activities: Yes (slight) Difficulties turning in bed: Yes (slight) Difficulties getting out of bed, car or chair: Yes (mild) Tremors/Gait/Balance Shaking or tremors: Yes (slight) Walking and balance problems: Yes (mild) Number of falls in the Last Month: 0 Gait freezing: Yes (moderate) Autonomic/Pain Lightheadeness on standin (none) Urinary problems: Yes (mild) Constipation problems: Yes (slight) Pain and other sensations: Yes (slight) Speech/Swallowing Speech problems: Yes (slight) Droolin (none) Chewing and swallowing problems: 0 (none) Sleep/Fatigue Sleep problems: Yes (moderate) Daytime sleepiness: Yes (mild) Fatigue: Yes (slight) Mood/Behavior Depression: Anxiety: ALPHONSE-7 Total Score: 5 usually representing mild (5-9) anxiety. Finally, the following table shows the patient's overall global physical and mental health using the PROMIS scale: PROMIS-10 Flowsheet Row Office Visit from 03/22/2024 in Neurology Global Physical Health T Score 54.1 Global Mental Health T Score 53.3 0-10 Standard Pain Scale 5 *PROMIS-10 scoring scale: mean = 50, over 50 is above average, under 50 is below average Review of Systems Review of Systems Constitutional Positive for Fatigue Negative for Fevers, Night Sweats, Weight Gain and Weight Loss Eyes Negative for Change in vison not corrected by glasses and Vision loss or change Hent Positive for Tinnitus and Recent change in speech or voice Negative for Hearing Loss and Difficulty Swallowing Cardiovascular Positive for Lightheadedness Negative for Chest Pain and Leg pain with walking Respiratory Negative for SOB at rest, SOB with exertion, Cough, Wheezing and Snoring GI Negative for Blood in Stool, Abdominal Pain, Diarrhea, Constipation, Nausea/Vomiting and Heartburn Positive for Urgency Negative for Incontinence Endocrine Negative for Heat Intolerance and Excessive Thirst Musculoskeletal Negative for Back Pain, Joint Swelling, Stiff Joints and Muscle Pain Integumentary Negative for Rashes, Itching and H (more content not included)... 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, without behavioral disturbance, psychotic disturbance, mood disturbance, or anxiety, unspecified dementia severity (HCC) Urinary urgency Urgency of urination [facility] Diagnosis Onset Date Resolution Status Admit Date Hx of Crohn's disease acute Prateek e 2024 10:32am [facility] Work Phone: Reason for referral (narrative)No reason for referral information availableBlBanner [facility] Work Phone: Reason for Referral Specialty Diagnoses / Procedures Referred By Asiya merrill Referred To Contact Diagnoses Parkinson's disease with dyskinesia and fluctuating manifestations (HCC) Procedures PROVIDER ORDERED FOLLOW UP OFFICE/OUTPATIENT [facility] 60 MINUTES Marilu Martinez MD [address] [address] Referral ID Status Reason Start Date Expiration Date Visits Requested Visits Authorized [id number] Authorized PCP Requested Referral 12/20/2024 03/22/2025 1 1 Specialty Diagnoses / Procedures Referred By Asiya merrill Referred To Contact Diagnoses Parkinson's disease with dyskinesia and fluctuating manifestations (HCC) Procedures NEUROPSYCHOLOGICAL TESTING CONSULT NEUROBEHAVIORAL STATUS XM PHYS/QHP 1ST HOUR NEUROPSYCHOLOGICAL TST EVAL PHYS/QHP 1ST HOUR NEUROPSYCHOLOGICAL TST EVAL PHYS/QHP EA ADDL HR PSYCL/NRPSYCL TST TECH 2+ TST 1ST 30 MIN PSYCL/NRPSYCL TST TECH 2+ TST EA ADDL 30 MIN Marilu Martinez MD [facility] [place] [address] Referral ID Status Reason Start Date Expiration Date Visits Requested Visits Authorized [id number] Ref Not Required PCP Requested Referral 4 03/22/2025 1 3 Chief Complaint and Reason for Visit Chief Complaint Admit Date Crohns November 01, 2024 10:3 2am Reason for Visit Admit Date Hx of Crohn's disease November 01, 2024 10 :32am Summary Purpose Family History No Family History Records FoundNo Family History Records Found Advance Directives No Advanced Directives Records FoundNo Advanced Directives Records Found Additional Source Comments Source Comments (unrecognize d section and content) In the event this informatio n is protected by the Federal Confidentiality of Alcohol and Drug Abuse Patient Records regulations: The Federal rules restrict any use of the information to criminally investigate or prosecute any alcohol or drug abuse patient.[facility] the event this information is protected by the Federal Confidentiality of Alcohol and Drug Abuse Patient Records regulations: The Federal rules restrict any use of the information to criminally investigate or prosecute any alcohol or drug abuse patient.[facility] Reason for Visit (unrecogniz ed section and content) Reason Comments New Patient Evaluation Reason Comments Parkinson's Disease Care Teams (unrecognized sec tion and content) Team Status: Inactive Member Role Status Dates NYASIA Browne Attending Provider Active Start: November 01, 2024 End: November 01, 2024 Goals (unrecognized section and content) Goals may be documented in a n alternate section INFORMATION SOURCE (unrecogn ized section and content) DATE CREATED AUTHOR 11/02/2024 [facility] DATE CREATED AUTHOR AUTHOR'S GENARO FLEMING 11/03/2024 [facility] FOR RECORDS PERTAINING TO PATIENTS WHO ARE OR HAVE BEEN ENROLLED IN A CHEMICAL DEPENDENCY/SUBSTANCEABUSE PROGRAM, SOME INFORMATION MAY BE OMITTED. This clinical summary was aggregated from multiple sources. Caution should be exercised in using it in the provision of clinical care. This summary normalizes information from multiple sources, and as a consequence, information in this document may materially change the coding, format and clinical context of patient data. In addition, data may be omitted in some cases. CLINICAL DECISIONS SHOULD BE BASED ON THE PRIMARY CLINICAL RECORDS. [facility] [employer] [facility]. provides no warranty or guarantee of the accuracy or completeness of information in this document.
[2024-11-08 14:09] LABS: Calprotectin, Stool 22 ug/g (0-120)
== END | disposition home or self-care (01) ==
PROVIDERS: PCP Family Medicine; Referring Provider Student in an Organized Health Care Education/Training Program; Visit Provider Student in an Organized Health Care Education/Training Program
DX: Z87.19 Personal history of other diseases of the digestive system (principal)
CPT/HCPCS: 83993

== ENCOUNTER → 2025-05-02 | Outpatient (CLI) | payer MEDICARE, SELFPAY ==
--- NOTE | 2025-05-02 14:35 | BI_ITS ---
EXAM: SCRN MAMM (CAD)W/LALO BILAT DATE: 05/02/2025 CLINICAL HISTORY: F, Age 74 y/o , SCREENING No family history. TECHNIQUE: Procedure Code: [id number] Modality: MG Procedure: SCRN MAMM (CAD)W/LALO BILAT COMPARISON: Prior exam(s) dated outside examination dated January 05, 2020.. FINDINGS: TISSUE DENSITY: The breasts are heterogeneously dense, which may obscure small masses. Bilateral Breast Mammographic Findings: No significant masses, calcifications or other abnormalities are identified. No suspicious masses, areas of developing architectural distortion, or suspicious calcifications. There has been no significant interval change. BI/SCRN MAMM (CAD)W/LALO BILAT IMPRESSION: Stable bilateral screening mammogram. OVERALL FINAL ASSESSMENT BI-RADS 1: NEGATIVE. RECOMMENDATION: Routine annual follow-up in 1 Year Additional Recommendation none A letter with findings and recommendations will be mailed to the patient. Reading Location: [place] [id number]
--- NOTE | 2025-05-02 14:48 | BD_ITS ---
PROCEDURE: DEXA BONE DENSITY STUDY 05/02/2025 REASON FOR EXAM: F, age 74 y/o . Postmenopausal. TECHNIQUE: Procedure Code: BDDBD Modality: DX Procedure: DEXA BONE DENSITY STUDY COMPARISON: None FINDINGS: BMD and T-SCORES Lumbar spine: 0.831 g/cm2, T-score -1.3 Levels: L1 through L4 Left femoral neck: 0.779 g/cm2, T-score -0.6 Femoral neck comparison data not recommended for monitoring change. Left total hip: 0.830 g/cm2, T-score -0.9 Right femoral neck: 0.779 g/cm2, T-score -0.6 Femoral neck comparison data not recommended for monitoring change. Right total hip: 0.825 g/cm2, T-score -1.0 The World Health Organization has defined the following categories based on bone density: Normal bone density: T-score equal to or greater than -1.0 Osteopenia: T-score between -1.0 and -2.5 Osteoporosis: T-score equal to or less than -2.5 FRAX (or Comparable) Fracture Risk Assessment: 10 Year Probability of Fracture: Major Osteoporotic Fracture: 8.2% Hip Fracture: 1.3% (Note: FRAX is not to be reported in setting of normal range bone density, osteoporosis on DEXA, known history of osteoporosis, prior osteoporotic hip or vertebral fracture, or for any patient undergoing pharmacological treatment for bone loss.) The National Osteoporosis Foundation (NOF) recommends pharmacological treatment for patients with a FRAX 10-year risk of 3% or higher for a hip fracture, or 20% or higher for a major osteoporotic fracture, to prevent osteoporosis and reduce fracture risk. The patient does meet the pharmacological treatment recommendations for prevention of osteoporosis. BD/Dexa Bone Density Study IMPRESSION: OSTEOPENIA. Recommend follow-up as clinically warranted. Reading Location: [place] [id number]
--- OUTSIDE RECORDS SUMMARY | 2025-05-02 18:29 | XMS RPT_ITS | CCD ---
Author Organization [facility] Care Team Providers Care Radius Corner Machine Operator Name Role Phone Unavailable Primary Care Provider UnavailDarcy Stark Attending Provider [place], Dr. David Dudley Primary Care Provider [phone] [place], Dr. David Dudley Attending Provider Dr. David Phelps MD Referring Provider Darcy Bustillos Referring Provider Darcy Pedraza Attending Unavailable David Phelps Referring Unavailable David Phelps Primary Care Unavailable David Phelps Attending Unavailable Darcy Pedraza Attending Unavailable Darcy Pedraza Referring Unavailable David Phelps Primary Care Unavailable JESSIE LUKE Attending Unavailable JESSIE LUKE Referring Unavailable JESSIE LUKE Attending Unavailable JESSIE LUKE Referring Unavailable EVERETTE REGAN Attending Unavailable MARILU MARTINEZ Referring Unavailable JESSIE LUKE Attending Unavailable EVERETTE REGAN Referring Unavailable Allergies Allergy Classification Reported Allergen(s) Allergy Type Date of Onset Reaction(s) Facility (8 sources) Neomycin; Translations: [NEOMYCIN] Drug Allergy 03-22-2024 [facility] (8 sources) Sulfonamides (Antibiotic); Translations: [SULFA (SULFONAMIDE ANTIBIOTICS)] Drug Allergy 03-22-2024 [facility] (8 sources) Thimerosal; Translations: [THIMEROSAL] Drug Allergy 03-22-2024 [facility] Medications Current Medications Medication Drug Class(es) Dates Sig (Normalized) Sig (Original) carbidopa 25 mg / levodopa 100 mg oral tablet (16 sources) Aromatic Amino Acid Decarboxylation Inhibitor, Aromatic Amino Acid Start: 12-09-2024 carbidopa-levodop a (SINEMET 25-100) 25-100 mg per tablet Take 1.5 tablets by mouth 6 times per day.. 810 tablet 3 12/09/2024 Active Start: 08-29-2024 End: 12-08-2024 take 1.5 tablets by mouth five times daily carbidopa-levodopa (SINEMET 25-100) 25-100 mg per tablet Take 1.5 tablets by mouth 5 times per day.. 225 tablet 5 08/29/2024 12/08/2024 Discontinued Start: 03-22-2024 End: 03-22-2025 take 2 tablets [...] Discontinued clobetasol propionate 0.0005 mg/mg topical ointment (7 sources) Corticosteroid Start: 08-30-2021 clobetasol (TEMOVATE) 0.05 % ointment Apply topically 2 times daily to affected area for 2 weeks 08/30/2021 Active donepezil hydrochloride 5 mg oral tablet (1 source) Start: 12-16-2024 take 1 tablet by mouth once daily at bedtime donepezil (ARICEPT) 5 mg tablet Indications: Dementia due to Parkinson's disease, without behavioral disturbance, psychotic disturbance, mood disturbance, or anxiety, unspecified dementia severity (HCC) Take 1 tablet by mouth daily at bedtime. 30 tablet 3 12/16/2024 Active midodrine hydrochloride 5 mg oral tablet (7 sources) alpha-Adrenergic Agonist Start: 07-08-2023 midodrine (PROAMITINE) 5 mg tablet Take 5 mg by mouth. 07/08/2023 Active Completed/Discontinued Medications Medication Drug Class(es) Dates [...] AND CONTINUE AFTER SURGERY 02/02/2024 09/09/2024 Discontinued 24 hr rivastigmine 0.192 mg/hr transdermal system (9 sources) Start: 11-14-2024 End: 11-14-2025 rivastigmine (EXELON PATCH) 4.6 mg/24 hour patch Indications: Dementia due to Parkinson's disease, without behavioral disturbance, psychotic disturbance, mood disturbance, or anxiety, unspecified dementia severity (HCC) Apply 1 patch as directed once daily. Apply patch to skin and leave on for 24 hours[address] Then remove and place a patch at new site. Do not use same exact location within 14 days. 30 patch 12/13/2024 12/16/2024 Discontinued Start: 10-14-2024 End: 11-12-2024 apply 1 dose transdermal route once daily rivastigmine (EXELON PATCH) 4.6 mg/24 hour patch Indications: Dementia due to Parkinson's disease, without behavioral disturbance, psychotic disturbance, mood disturbance, or anxiety, unspecified dementia severity (HCC) Apply 1 patch as directed once daily. Apply patch to skin and leave on for 24 hours. Then remove and place a patch at new site. 30 patch 10/14/2024 11/12/2024 Discontinued Start: 09-09-2024 End: 10-09-2024 apply 1 dose [...] daily. 30 patch 5 09/09/2024 03/08/2025 Active solifenacin succinate 10 mg oral tablet (2 sources) Cholinergic Muscarinic Antagonist Start: 02-26-2015 End: 09-09-2024 solifenacin (VESICARE) 10 mg tablet 02/26/2015 09/09/2024 Discontinued ubidecarenone 100 mg / vitamin e 5 unt oral capsule (2 sources) End: 09-09-2024 Coenzyme U10-Nryqhwc E 100-5 mg-unit cap Take by mouth. 09/09/2024 Discontinued Problems Problem Classification Problem Date Documented Da te Episodic/Chronic Delirium, dementia, and amnestic and other cognitive disorders (1 source) Dementia in other diseases classified elsewhere without behavioral disturbance; Translations: [Dementia due to Parkinson's disease, without behavioral disturbance, psychotic disturbance, mood disturbance, or anxiety, unspecified dementia severity (HCC)] Onset: 12-16-2024 Chronic E Codes: Adverse effects of medical drugs (1 source) Adverse reaction to drug; Translations: [Adverse effect of unspecified topical agent, initial encounter] 12-16-2024 Episodic Genitourinary symptoms and ill-defined conditions (1 source) Urgent desire to urinate; Translations: [Urgency of urination] 09-09-2024 Episodic Other circulatory disease (1 source) Hypotension, unspecified; Translations: [Hypotension, unspecified] Onset: 11-07-2024 Episodic Other gastrointestinal disorders (6 sources) History of Crohns disease; Translations: [Personal history of other diseases of the digestive system] 11-01-2024 Episodic Other gastrointestinal disorders (1 source) Personal history of other diseases of the digestive system; Translations: [Personal history of other diseases of the digestive system] Onset: 11-09-2024 Episodic Parkinson`s disease (2 sources) Parkinson`s disease; Translations: [Parkinson's disease with dyskinesia and fluctuating manifestations (HCC)] Onset: 12-16-2024 Unclassified (4 sources) Parkinson's disease; Translations: [Parkinson's disease with dyskinesia and fluctuating manifestations (HCC)] 03-22-2024 Chronic Unclassified (6 sources) Dementia due to Parkinson's disease; Translations: [Dementia due to Parkinson's disease, without behavioral disturbance, psychotic disturbance, mood disturbance, or anxiety, unspecified dementia severity (HCC)] 09-09-2024 Chronic Results Test Name Value Interpretation Reference Range Facility [facility] 04-04-2025 [facility] Telephone (NREUS2) ANNE MCGOVERN ([id number]) 1950 F Date Time Provider Department 04/04/25 JESSIE LUKE NRJOELS2 During your visit today, we recorded the following information about you: Bessie Still RN 04/04/2025 5:37 PM Signed PA sent via [facility] for Rasagiline. Awaiting response. Allergies As of Date: 04/04/2025 Noted Allergy Reaction NEOMYCIN 03/22/2024 2 - Rash SULFA (SULFONAMIDE ANTIBIOTICS) 03/22/2024 2 - Rash THIMEROSAL 03/22/2024 2 - Rash Date Reviewed: 03/31/2025 Reviewed by: Jessie Luke APRN.QUALITY CONSULTANT - Fully Assessed Prescriptions as of 04/04/2025 - GEMTESA 75 mg tablet 75 mg. - donepezil (ARICEPT) 10 mg tablet Take 1 tablet by mouth daily at bedtime. - rasagiline (AZILECT) 0.5 mg tab Take 1 tablet by mouth once daily. - donepezil (ARICEPT) 5 mg tablet Take 1 tablet by mouth daily at bedtime. - carbidopa-levodopa (SINEMET 25-100) 25-100 mg per tablet Take 1.5 tablets by mouth 6 times per day.. - clobetasol (TEMOVATE) 0.05 % ointment Apply topically 2 times daily to affected area for 2 weeks - midodrine (PROAMITINE) 5 mg tablet Take 5 mg by mouth. - carbidopa-levodopa CR (SINEMET CR) 25-100 mg per tablet Take 2 tablets by mouth once daily. At bedtime Problem List As Of Date: 04/04/2025 (None) Encounter Status:Closed by BESSIE STILL on 04/04/25 [facility] 03-31-2025 [facility] Office Visit (NRMDN) SHANIQUAANNE Mishra ([id number]) 1950 F Date Time Provider Department 03/31/25 1:00 PM JESSIE LUKE During your visit today, we recorded the following information about you: Weight Height 54.5 kg 1.676 m Jessie Luke APRN.QUALITY CONSULTANT 03/31/2025 4:35 PM Signed [facility] - FOLLOW UP EVALUATION I had the pleasure of seeing Ms. Mcgovern for follow-up today. She is a 74 year old right-handed female with a history of PD since 2010. She is seen with her . Subjective Previous Plan- 12/16/2024 Visit: 1. Dementia due to Parkinson's disease, without behavioral disturbance, psychotic disturbance, mood disturbance, or anxiety, unspecified dementia severity (HCC) (G20.A1) - Recent trial of Exelon patch 9.5 mg resulted in significant nausea, headache, and emesis; reverted to 4.6 mg patch, but persistent localized erythema and pruritus at application sites. - Discontinue Exelon patch 4.6 mg. - Start donepezil 5 mg PO at bedtime; discussed similar side effect profile to Exelon, including potential for nausea, and rationale for cautious titration. - Follow-up in 3 months to assess donepezil tolerance and efficacy. 2. Parkinson's disease with dyskinesia and fluctuating manifestations (HCC) (G20.B2) - Carbidopa-levodopa adjusted by patients , currently administered every 2.5 hours (6-7 doses/day) with two controlled-release tablets at bedtime; no hallucinations, nausea, or dizziness reported, but some dyskinesia noted. - Discussed option to add rasagiline to extend carbidopa-levodopa efficacy and potentially increase dosing interval to 3-3.5 hours; plan to revisit at next follow-up in 3 months. - Continue current carbidopa-levodopa regimen. - Follow-up in 3 months to reassess medication regimen and consider addition of rasagiline. Interval History: Anne Mcgovern is a 74-year-old female with dementia, Parkinson's disease, and orthostatic hypotension presenting for follow-up. She is accompanied by her , who provides additional history. Anne is currently taking donepezil 5 mg daily, which she is tolerating well without any side effects. She increased carbidopa-levodopa to 7 times daily as her Sinemet is only lasting 2 hours now. Her reports that if she goes longer than 2 hours and 15 minutes between doses, she experiences fogging, moves slowly, and struggles with movement. She is also taking a controlled-release dose at bedtime. She is also taking midodrine once daily in the morning for orthostatic hypotension. She reports dizziness at times, but denies falls or syncope. She has a history of one syncopal episode in her life, 3-4 years ago. She denies hallucinations, but reports seeing an animal at the beginning of her illness. She is active and exercises regularly. She attends 3 workouts per week at [employer], including 1 class and 1 one-on-one session with an instructor. She also attends Pilates to music twice a month at a congregational. She recently completed a workout room in her basement with boxing, an inversion table, a treadmill, weights, and balance equipment. House construction is near complete. Plans to live in [place] and visit [place] for a month in winter. She will see Dr. Yap in May while in [place]. Movement Disorders Medications Schedule - as of the start of the visit: Medications 8a 10:30a 1p 3:30p 6p 8:30p bedtime Sinemet (carbidopa-levodopa) 25/100 1.5 1.5 1.5 1.5 1.5 1.5 Sinemet (carbidopa-levodopa) CR 25/100 2 Donepezil 5 mg 1 midodrine 5 mg 1-2 times per day Parkinson's Motor Complications Medication duration: 3.5 hours Wearing off: yes Painful off-state dystonia: no Dyskinesia: yes Prior Anti-Parkinson Therapies Carbidopa/Levodopa Carbidopa/Levodopa CR Questionnaires: Mood/Behavior Depression: PHQ-9 Score: 5 usually representing mild (5-9) depression. Anxiety: ALPHONSE-7 Total Score: 5 usually representing mild (5-9) anxiety. Finally, the following table shows the patient's overall global physical and mental health using the PROMIS scale: PROMIS-10 Flowsheet Row Office Visit from 03/31/2025 in Neurology [facility] from 12/16/2024 in Neurology Global Physical Health T Score 47.7 44.9 Global Mental Health T Score 45.8 50.8 0-10 Standard Pain Scale 5 4 *PROMIS-10 scoring scale: mean = 50, over 50 is above average, under 50 is below average ALLERGIES Allergen Reactions Neomycin Rash Sulfa (Sulfonamide * Rash Thimerosal Rash Current Outpatient Medications Medication Sig GEMTESA 75 mg tablet 75 mg. donepezil (ARICEPT) 5 mg tablet Take 1 tablet by mouth daily at bedtime. carbidopa-levodopa (SINEMET 25-100) 25-100 mg per tablet Take 1.5 tablets by mouth 6 times per day.. (Patient taking differently: Take 1.5 tablets by mouth 7 times per day. Pt takes 1.5 tabs every 2 hours upon awakening (more content not included)... [facility] Telephone (MARIANN) ANNE MCGOVERN ([id number]) 1950 F Date Time Provider Department 12/12/24 CORIE, MARILU NRMDN During your visit today, we recorded the following information about you: Gali Brody MA 12/12/2024 11:48 AM Signed Received an approval letter from [facility] [facility] for carb/levo 25-100. Case # [id number] Allergies As of Date: 12/12/2024 Noted Allergy Reaction NEOMYCIN 03/22/2024 2 - Rash SULFA (SULFONAMIDE ANTIBIOTICS) 03/22/2024 2 - Rash THIMEROSAL 03/22/2024 2 - Rash Date Reviewed: 09/09/2024 Reviewed by: Jessie Luke APRN.QUALITY CONSULTANT - Fully Assessed Reason for Visit: Insurance Authorization [[id number]] Prescriptions as of 12/12/2024 - carbidopa-levodopa (SINEMET 25-100) 25-100 mg per tablet Take 1.5 tablets by mouth 6 times per day.. - rivastigmine (EXELON PATCH) 4.6 mg/24 hour patch Apply 1 patch as directed once daily. Apply patch to skin and leave on for 24 hours. Then remove and place a patch at new site. - clobetasol (TEMOVATE) 0.05 % ointment Apply topically 2 times daily to affected area for 2 weeks - midodrine (PROAMITINE) 5 mg tablet Take 5 mg by mouth. - carbidopa-levodopa CR (SINEMET CR) 25-100 mg per tablet Take 2 tablets by mouth once daily. At bedtime Problem List As Of Date: 12/12/2024 (None) Encounter Status:Closed by GALI BRODY on 12/12/24 Normal [facility] Calprotectin, Stoolon [address] 22 ug/g Normal 0-120 [facility] Comment on above: Result Comment: Conc entration Interpretation Follow-Up < 5 - 50 ug/g Normal None >50 -120 ug/g Borderline Re-evaluate in 4-6 weeks >120 ug/g Abnormal Repeat as clinically indicated Performed at: - [facility] [id number] Regional Liaison: Candelaria Lux MD, Phone: [phone] Performed By: #### L 7000.0700 #### [facility] [address] [place], [address] Calprotectin stoolOrdered By : Darcy Pedraza on 11-03-2024 Calprotectin stool 22 ug/g 0-120 [facility] Comment on above: Concentration Interp retation Follow-Up< 5 - 50 ug/g Normal None>50 -120 ug/g Borderline Re-evaluate in 4-6 weeks >120 ug/g Abnormal Repeat as clinically indicatedPerformed at: [facility] [id number] Director: Candelaria Lux MD, Phone: [phone] Absolute lymphocyte countOrd ered By: David Phelps on 11-01-2024 Lymphocytes Auto (Unsp spec) [#/Vol] 0.97 10*3/uL 0.83-4.51 [facility] Absolute neutrophil countOrd ered By: David Phelps on 11-01-2024 Neutrophils (Bld) [#/Vol] 3.7 10*3/uL 2.0-7.7 [facility] Anion gap in Serum or Plasma Ordered By: David hPelps on 11-01-2024 Anion gap [Moles/Vol] 10 mmol/L 5-15 [facility] Automated lymphocyte count a s percentage of total leukocytesOrdered By: David Phelps on 11-01-2024 Lymphocytes/100 WBC Auto (Unsp spec) 17.8 % Low 19-41 [facility] BUN/creatinine ratioOrdered By: David Phelps on 11-01-2024 Urea nitrogen/Creatinine [Mass ratio] 26.1 mg/mg High 10-20 [facility] Basophil percentageOrdered B y: David Phelps on 11-01-2024 Basophils/100 WBC (Bld) 1.1 % High 0-1 [facility] Bilirubin Test strip Ql (U)O rdered By: David Phelps on 11-01-2024 Bilirubin Ql (U) Negative Negative [facility] Bilirubin, totalOrdered By: David Phelps on 11-01-2024 Bilirubin [Mass/Vol] 0.46 mg/dL 0.00-1.[address] [facility] CBC W/Diff, Automatedon 10-23 Absolute Lymph 0.97 X10 3/uL Normal 0.83-4.51 [facility] Comment on above: Order Comment: Order Date: 08/25/24 Order Info: 0184-1 - CBCD Performed By: #### L 400.0001, L501.9520, L100.0100, [id number] #### [facility] [address] [place], [address] Absolute Neut 3.7 X10 3/uL Normal 2.0-7.7 [facility] Comment on above: Order Comment: Order Date: 08/25/24 Order Info: 0184- - CBCD Performed By: #### L 400.0001, [id number], L100.0100, [id number] #### [facility] [address] [place], [address] Basophils/100 WBC (Bld) 1.1 % High 0-1 [facility] Comment on above: Order Comment: Order Date: 08/25/24 Order Info: 0184- - CBCD Performed By: #### L 400.0001, [id number], L100.0100, [id number] #### [facility] [address] [place], [address] Eosinophils/100 WBC (Bld) 5.3 % High 0-5 [facility] Comment on above: Order Comment: Order Date: 08/25/24 Order Info: 0184-1 - CBCD Performed By: #### L 400.0001, [id number], L100.0100, [id number] #### [facility] [address] [place], [address] Erythrocyte distribution width (RBC) [Ratio] 12.8 % Normal 11.6-14.6 [facility] Comment on above: Order Comment: Order Date: 08/25/24 Order Info: 0184-1 - CBCD Performed By: #### L 400.0001, [id number], L100.0100, [id number] #### [facility] [address] [place], [address] Hematocrit (Bld) [Volume fraction] 37.4 % Normal 37-47 [facility] Comment on above: Order Comment: Order Date: 08/25/24 Order Info: 0184-1 - CBCD Performed By: #### L 400.0001, L501.9520, L100.0100, [id number] #### [facility] [address] [place], [address] Hemoglobin (Bld) [Mass/Vol] 12.7 g/dL Normal 12.0-15.0 [facility] Comment on above: Order Comment: Order Date: 08/25/24 Order Info: 0184-1 - CBCD Performed By: #### L 400.0001, [id number], L100.0100, [id number] #### [facility] [address] [place], [address] IG% 0.400 Normal 0.0-0.9 [facility] Comment on above: Order Comment: Order Date: 08/25/24 Order Info: 0184-1 - CBCD Result Comment: IG% - Immature Granulocytes (promyelocytes, myelocytes and metamyelocytes) > 1% indicates that a LEFT SHIFT is Present. Performed By: #### L 400.0001, L501.9520, L100.0100, [id number] #### [facility] [address] [place], [address] Lymphocytes/100 WBC (Bld) 17.8 % Low 19-41 [facility] Comment on above: Order Comment: Order Date: 08/25/24 Order Info: 0184-1 - CBCD Performed By: #### L 400.0001, [id number], L100.0100, [id number] #### [facility] [address] [place], [address] MCH (RBC) [Entitic mass] 32.4 pg High 27.0-32.0 [facility] Comment on above: Order Comment: Order Date: 08/25/24 Order Info: 0184-1 - CBCD Performed By: #### L 400.0001, [id number], L100.0100, [id number] #### [facility] [address] [place], [address] MCHC (RBC) [Mass/Vol] 34.0 g/dL Normal 32-36 [facility] Comment on above: Order Comment: Order Date: 08/25/24 Order Info: 0184-1 - CBCD Performed By: #### L 400.0001, L501.9520, L100.0100, [id number] #### [facility] [address] [place], [address] MCV (RBC) [Entitic vol] 95.4 fL Normal 81-99 [facility] Comment on above: Order Comment: Order Date: 08/25/24 Order Info: 0184-1 - CBCD Performed By: #### L 400.0001, [id number], L100.0100, [id number] #### [facility] [address] [place], [address] Monocytes/100 WBC (Bld) 8.6 % Normal 0-10 [facility] Comment on above: Order Comment: Order Date: 08/25/24 Order Info: 0184-1 - CBCD Performed By: #### L 400.0001, [id number], L100.0100, [id number] #### [facility] [address] [place], [address] Neutrophils/100 WBC (Bld) 66.8 % Normal 47-70 [facility] Comment on above: Order Comment: Order Date: 08/25/24 Order Info: 0184-1 - CBCD Performed By: #### L 400.0001, [id number], L100.0100, [id number] #### [facility] [address] [place], [address] Nucleated RBC (Bld) [#/Vol] 0 10*3/uL Normal 0-5 [facility] Comment on above: Order Comment: Order Date: 08/25/24 Order Info: 0184-1 - CBCD Performed By: #### L 400.0001, [id number], L100.0100, [id number] #### [facility] [address] [place], [address] Platelet mean volume (Bld) [Entitic vol] 10.9 fL Normal 6.2-12.0 [facility] Comment on above: Order Comment: Order Date: 08/25/24 Order Info: 0184-1 - CBCD Performed By: #### L 400.0001, [id number], L100.0100, [id number] #### [facility] [address] [place], [address] Platelets (Bld) [#/Vol] 191 10*3/uL Normal 150-450 [facility] Comment on above: Order Comment: Order Date: 08/25/24 Order Info: 0184-1 - CBCD Performed By: #### L 400.0001, [id number], L100.0100, [id number] #### [facility] [address] [place], [address] RBC (Bld) [#/Vol] 3.92 10*6/uL Low 4.2-5.4 [facility] Comment on above: Order Comment: Order Date: 08/25/24 Order Info: 0184-1 - CBCD Performed By: #### L 400.0001, [id number], L100.0100, [id number] #### [facility] [address] [place], [address] RDW SD 44.7 fl High 35.1-43.9 [facility] Comment on above: Order Comment: Order Date: 08/25/24 Order Info: 0184-1 - CBCD Performed By: #### L 400.0001, [id number], L100.0100, [id number] #### [facility] [address] [place], [address] WBC (Bld) [#/Vol] 5.5 10*3/uL Normal 4.4-11.0 [facility] Comment on above: Order Comment: Order Date: 08/25/24 Order Info: 0184- - CBCD Performed By: #### L 400.0001, [id number], L100.0100, [id number] #### [facility] [address] [place], [address] Carbon dioxide, total [Moles /volume] in Central venous bloodOrdered By: David Phelps on 11-01-2024 CO2 [Moles/Vol] 26.8 mmol/L 21.0-32.0 [facility] Chloride assayOrdered By: Demetrice Phelps on 11-01-2024 Chloride [Moles/Vol] 104 mmol/L 98-[address] [facility] Comprehensive Metabolic Prof ilon 11-01-2024 Albumin [Mass/Vol] 4.2 g/dL Normal 3.4-4.8 [facility] Comment on above: Order Comment: Order Date: 08/25/24 Order Info: 0786-1 - CMP Order Info: 3016-3 - TSH Performed By: #### L 400.0001, L501.9520, L100.0100, [id number] #### [facility] [address] [place], [address] Albumin/Globulin [Mass ratio] 1.5 {ratio} Normal 0.9-2.4 [facility] Comment on above: Order Comment: Order Date: 08/25/24 Order Info: 0786-1 - CMP Order Info: 3016-3 - TSH Performed By: #### L 400.0001, [id number], L100.0100, [id number] #### [facility] [address] [place] [place], [address] ALK PHOS 100 U/L Normal 35-104 [facility] Comment on above: Order Comment: Order Date: 08/25/24 Order Info: 0786-1 - CMP Order Info: 3 - TSH Performed By: #### L 400.0001, [id number], L100.0100, [id number] #### [facility] [address] [place], [address] ALT [Catalytic activity/Vol] U/L Normal <=34 [facility] Comment on above: Order Comment: Order Date: 08/25/24 Order Info: 0786- - CMP Order Info: 3 - TSH Performed By: #### L 400.0001, L501.9520, L100.0100, L500.4050 #### [facility] [address] [place], [address] AST [Catalytic activity/Vol] 15 U/L Normal <=31 [facility] Comment on above: Order Comment: Order Date: 08/25/24 Order Info: 0786- - CMP Order Info: 3 - TSH Performed By: #### L 400.0001, L501.9520, L100.0100, L500.4050 #### [facility] [address] [place], [address] Bilirubin [Mass/Vol] 0.46 mg/dL Normal 0.00-1.[address] [facility] Comment on above: Order Comment: Order Date: 08/25/24 Order Info: 0786-1 - CMP Order Info: 3 - TSH Performed By: #### L 400.0001, L501.9520, L100.0100, L500.4050 #### [facility] [address] [place], [address] BUN/CRE 26.1 RATIO High 10-20 [facility] Comment on above: Order Comment: Order Date: 08/25/24 Order Info: 0786-1 - CMP Order Info: 3015-3 - TSH Performed By: #### L 400.0001, L501.9520, L100.0100, L500.4050 #### [facility] [address] [place], [address] Calcium [Mass/Vol] 9.4 mg/dL Normal 7.6-11.0 [facility] Comment on above: Order Comment: Order Date: 08/25/24 Order Info: 0786-1 - CMP Order Info: 3 - TSH Performed By: #### L 400.0001, L501.9520, L100.0100, L500.4050 #### [facility] [address] [place], [address] Chloride [Moles/Vol] 104 mmol/L Normal 98-[address] [facility] Comment on above: Order Comment: Order Date: 08/25/24 Order Info: 0786-1 - CMP Order Info: 3015-3 - TSH Performed By: #### L 400.0001, L501.9520, L100.0100, L500.4050 #### [facility] [address] [place], [address] CO2 [Moles/Vol] 26.8 mmol/L Normal 21.0-32.0 [facility] Comment on above: Order Comment: Order Date: 08/25/24 Order Info: 0786-1 - CMP Order Info: 3015-3 - TSH Performed By: #### L 400.0001, L501.9520, L100.0100, L500.4050 #### [facility] [address] [place], [address] Creatinine [Mass/Vol] 0.76 mg/dL Normal 0.70-1.20 [facility] Comment on above: Order Comment: Order Date: 08/25/24 Order Info: 0786-1 - CMP Order Info: 301-3 - TSH Performed By: #### L 400.0001, L501.9520, L100.0100, L500.4050 #### [facility] [address] [place], [address] GAP 10 Normal 5-15 [facility] Comment on above: Order Comment: Order Date: 08/25/24 Order Info: 0786-1 - CMP Order Info: 3 - TSH Performed By: #### L 400.0001, L501.9520, L100.0100, L500.4050 #### [facility] [address] [place], [address] GFR/1.73 sq M.predicted among non-blacks MDRD (S/P/Bld) [Vol rate/Area] 81 mL/min/{1.73_m2} Normal >60 [facility] Comment on above: Order Comment: Order Date: 08/25/24 Order Info: 0786-1 - CMP Order Info: 3015-07 - TSH Result Comment: mL/m in/1.73m2 CKD-EPI Creatinine Equation (2020) Performed By: #### L 400.0001, L501.9520, L100.0100, L500.4050 #### [facility] [address] [place], [address] Globulin (S) [Mass/Vol] 2.8 g/dL Normal 2.2-4.2 [facility] Comment on above: Order Comment: Order Date: 08/25/24 Order Info: 0786-1 - CMP Order Info: 301-3 - TSH Performed By: #### L 400.0001, L501.9520, L100.0100, L500.4050 #### [facility] [address] [place], [address] Glucose [Mass/Vol] 76 mg/dL Normal 70-99 [facility] Comment on above: Order Comment: Order Date: 08/25/24 Order Info: 0786-1 - CMP Order Info: 3 - TSH Performed By: #### L 400.0001, L501.9520, L100.0100, L500.4050 #### [facility] [address] [place], [address] Potassium [Moles/Vol] 4.2 mmol/L Normal 3.3-5.1 [facility] Comment on above: Order Comment: Order Date: 08/25/24 Order Info: 0786-1 - CMP Order Info: 3015-3 - TSH Performed By: #### L 400.0001, L501.9520, L100.0100, L500.4050 #### [facility] [address] [place], [address] Sodium [Moles/Vol] 140 mmol/L Normal 133-145 [facility] Comment on above: Order Comment: Order Date: 08/25/24 Order Info: 0786-1 - CMP Order Info: 3013 - TSH Performed By: #### L 400.0001, L501.9520, L100.0100, L500.4050 #### [facility] [address] [place], [address] T PROT 7.0 g/dL Normal 5.9-8.4 [facility] Comment on above: Order Comment: Order Date: 08/25/24 Order Info: 0786-1 - CMP Order Info: 3013 - TSH Performed By: #### L 400.0001, L501.9520, L100.0100, L500.4050 #### [facility] [address] [place], [address] Urea nitrogen [Mass/Vol] 20 mg/dL High 4-19 [facility] Comment on above: Order Comment: Order Date: 08/25/24 Order Info: 0786-1 - CMP Order Info: 3016-3 - TSH Performed By: #### L 400.0001, L501.9520, L100.0100, L500.4050 #### [facility] [address] [place], [address] Eosinophil percentageOrdered By: David Phelps on 11-01-2024 Eosinophils/100 WBC (Bld) 5.3 % High 0-5 [facility] Erythrocyte distribution wid th ratioOrdered By: David Phelps on 11-01-2024 Erythrocyte distribution width (RBC) [Ratio] 12.8 % 11.6-14.6 [facility] Erythrocyte distribution wid th standard deviationOrdered By: David Phelps on 11-01-2024 Erythrocyte distribution width (RBC) [Ratio] 44.7 fl High 35.1-43.9 [facility] Gastroenterology Visit Repor ton 11-01-2024 Gastroenterology Visit Report [facility] Gastroenterology [address] [place] [address] OFFICE VISIT Date of Service: 11/01/24 MR#: [id number] Acct: [id number] Name: ANNE MCGOVERN Rep #: [id number] : 1950 Provider: NYASIA Browne Age/Sex: 74/F Location[place] [facility] [place] Status: Signed Intake Intake Visit Reasons: Crohns [...] past year?: No 11/01/24 1149 Date Darcy Herreraigner Signature: Date (if applicable) CC: Normal [facility] Glomerular filtration rate ( GFR) estimation/1.73 sq m using serum, plasma, or whole bOrdered By: David Phelps on 11-01-2024 GFR/1.73 sq M.predicted among non-blacks MDRD (S/P/Bld) [Vol rate/Area] 81 mL/min/{1.73_m2} >60 [facility] Comment on above: mL/min/1.73m2 CKD-EP I Creatinine Equation (2020) Hematocrit Auto (Bld) [Volum e fraction]Ordered By: David Phelps on 11-01-2024 Hematocrit (Bld) [Volume fraction] 37.4 % 37-47 [facility] Hemoglobin measurementOrdere d By: David Phelps on 11-01-2024 Hemoglobin (Bld) [Mass/Vol] 12.7 g/dL 12.0-15.0 [facility] Immature granulocytes/100 WB C Auto (Bld)Ordered By: David Phelps on 11-01-2024 Immature granulocytes/100 WBC (Bld) 0.400 % 0.0-0.9 [facility] Comment on above: IG% - Immature Granu locytes (promyelocytes, myelocytes and metamyelocytes) > 1% indicates that a LEFT SHIFT is Present. Ketones Test strip Ql (U)Ord ered By: David Phelps on 11-01-2024 Ketones Ql (U) 15 mg/dl High Negative [facility] - Chemistry and C hemistry - challengeOrdered By: David Phelps on 11-01-2024 AST [Catalytic activity/Vol] 15 U/L <32 [facility] MCV (mean corpuscular volume ) determinationOrdered By: David Phelps on 11-01-2024 MCV (RBC) [Entitic vol] 95.4 fL 81-99 [facility] Mean corpuscular hemoglobin (MCH) determinationOrdered By: David Phelps on 11-01-2024 MCH (RBC) [Entitic mass] 32.4 pg High 27.0-32.0 [facility] Mean corpuscular hemoglobin concentration (MCHC) determinationOrdered By: David Phelps on 11-01-2024 MCHC (RBC) [Mass/Vol] 34.0 g/dL 32-36 [facility] Mean platelet volume determi nationOrdered By: David Phelps on 11-01-2024 Platelet mean volume (Bld) [Entitic vol] 10.9 fL 6.2-12.0 [facility] Microscopic analysis of urin e for red blood cells (RBC)Ordered By: David Phelps on 11-01-2024 Microscopic analysis of urine for red blood cells (RBC) 0-5 SEEN /hpf 0-5 [facility] Monocyte percentageOrdered B y: David Phelps on 11-01-2024 Monocytes/100 WBC (Bld) 8.6 % 0-10 [facility] Mucus LM Ql (Urine sed)Order ed By: David Phelps on 11-01-2024 Mucus Ql (Urine sed) 0 SEEN /hpf [facility] Neutrophil percentageOrdered By: David Phelps on 11-01-2024 Neutrophils/100 WBC (Bld) 66.8 % 47-70 [facility] Nitrite Test strip Ql (U)Ord ered By: David Phelps on 11-01-2024 Nitrite Ql (U) Negative Negative [facility] Nucleated red blood cell per centageOrdered By: David Phelps on 11-01-2024 Nucleated RBC/100 WBC (Bld) [Ratio] 0 % 0-5 [facility] Platelet countOrdered By: Demetrice Phelps on 11-01-2024 Platelets (Bld) [#/Vol] 191 10*3/uL 150-450 [facility] Potassium measurement (mass/ volume)Ordered By: David Phelps on 11-01-2024 Potassium (Unsp spec) [Mass/Vol] 4.2 mmol/L 3.3-5.1 [facility] Protein Test strip Ql (U)Ord ered By: David Phelps on 11-01-2024 Protein Ql (U) 15 mg/dl High Negative [facility] RBC Auto (Bld) [#/Vol]Ordere d By: David Phelps on 11-01-2024 RBC (Bld) [#/Vol] 3.92 10*6/uL Low 4.2-5.4 [facility] Serum creatinine measurement (mass/volume)Ordered By: David Phelps on 11-01-2024 Creatinine [Mass/Vol] 0.76 mg/dL 0.70-1.20 [facility] Serum globulin measurementOr dered By: David Phelps on 11-01-2024 Globulin (S) [Mass/Vol] 2.8 g/dL 2.2-4.2 [facility] Serum glucose measurement (m ass/volume)Ordered By: David Phelps on 11-01-2024 Glucose [Mass/Vol] 76 mg/dL 70-99 [facility] Serum or plasma alanine hanks otransferase (ALT) measurementOrdered By: David Phelps on 11-01-2024 ALT [Catalytic activity/Vol] U/L <35 [facility] Serum or plasma albumin noni urement (mass/volume)Ordered By: David Phelps on 11-01-2024 Albumin [Mass/Vol] 4.2 g/dL 3.4-4.8 [facility] Serum or plasma albumin/glob ulin mass ratioOrdered By: David Phelps on 11-01-2024 Albumin/Globulin [Mass ratio] 1.5 {ratio} 0.9-2.4 [facility] Serum or plasma alkaline renetta sphatase measurementOrdered By: David Phelps on 11-01-2024 ALP [Catalytic activity/Vol] 100 U/L 35-104 [facility] Serum or plasma calcium noni urement (mass/volume)Ordered By: David Phelps on 11-01-2024 Calcium [Mass/Vol] 9.4 mg/dL 7.6-11.0 [facility] Serum or plasma urea nitroge n measurement (mass/volume)Ordered By: David Phelps on 11-01-2024 Urea nitrogen [Mass/Vol] 20 mg/dL High 4-19 [facility] Sodium levelOrdered By: David Phelps on 11-01-2024 Sodium [Moles/Vol] 140 mmol/L 133-145 [facility] Squamous epithelial cells de tection in urine sediment by light microscopyOrdered By: David Phelps on 11-01-2024 Epithelial cells.squamous LM Ql (Urine sed) 0-5 SEEN /hpf 5-10 [facility] TSH DL <= 0.005 mIU/L QnOrde red By: David Phelps on 11-01-2024 TSH Qn 1.130 uIU/mL 0.300-4.200 [facility] Thyroid Stim Hormone (TSH)on 11-01-2024 TSH 1.130 uIU/mL Normal 0.300-4.200 [facility] Comment on above: Order Comment: Order Date: 08/25/24 Order Info: 0786-1 - CMP Order Info: 3016-3 - TSH Performed By: #### L 400.0001, L501.9520, L100.0100, L500.4050 #### [facility] [address] [place], [address] Total proteinOrdered By: James Phelps on 11-01-2024 Protein [Mass/Vol] 7.0 g/dL 5.9-8.4 [facility] Urinalysis, Completeon 11-01 RBC 0-5 SEEN Normal 0-5 [facility] Comment on above: Order Comment: Order Date: 08/25/24 Order Info: [id number] - [employer]IMMER TO SPECIFY Performed By: #### L 400.0001, L501.9520, L100.0100, L500.4050 #### [facility] [address] [place], [address] WBC 0-5 SEEN Normal 0-5 [facility] Comment on above: Order Comment: Order Date: 08/25/24 Order Info: [id number] - [employer] TRIMMER TO SPECIFY Performed By: #### L 400.0001, L501.9520, L100.0100, L500.4050 #### [facility] [address] [place], [address] BACTERIA 1+ /hpf Normal None Seen [facility] Comment on above: Order Comment: Order Date: 08/25/24 Order Info: [id number] [facility] [employer] MEAT TRIMMER TO SPECIFY Performed By: #### L 400.0001, L501.9520, L100.0100, L500.4050 #### [facility] [address] [place], [address] EPI,SQUAMOUS 0-5 SEEN Normal 5-10 [facility] Comment on above: Order Comment: Order Date: 08/25/24 Order Info: [id number] - [facility] SAUSAGE MEAT TRIMMER TO SPECIFY Performed By: #### L 400.0001, L501.9520, L100.0100, L500.4050 #### [facility] [address] [place], [address] Mucus Ql (Urine sed) 0 SEEN Normal [facility] Comment on above: Order Comment: Order Date: 08/25/24 Order Info: [id number] [facility] [employer] TRIMMER TO SPECIFY Performed By: #### L 400.0001, L501.9520, L100.0100, L500.4050 #### [facility] [address] [place], [address] Urine clarityOrdered By: James Phelps on 11-01-2024 Clarity (U) Sl. Cloudy Clear [facility] Urine color determinationOrd ered By: David Phelps on 11-01-2024 Color (U) Yellow Yellow [facility] Urine glucose detectionOrder ed By: David Phelps on 11-01-2024 Glucose Ql (U) Normal mg/dl Normal [facility] Urine leukocyte esterase det ection by dipstickOrdered By: David Phelps on 11-01-2024 Leukocyte esterase Test strip Ql (U) 25 /ul High Negative [facility] Urine pHOrdered By: David jeffers on 11-01-2024 pH (U) 5.0 [pH] 5.0 - 8.0 [facility] Urine sediment bacteria coun t by microscopy (number/high power field)Ordered By: David Phelps on 11-01-2024 Bacteria LM.HPF (Urine sed) [#/Area] 1 /[HPF] None Seen [facility] Urine specific gravity measu rementOrdered By: David Phelps on 11-01-2024 Specific gravity (U) [Rel density] 1.020 1.002-1.030 [facility] Urine urobilinogen measureme ntOrdered By: David Phelps on 11-01-2024 Urobilinogen Ql (U) 1 mg/dl High Normal [facility] White blood cell (WBC) count Ordered By: David Phelps on 11-01-2024 WBC (Bld) [#/Vol] 5.5 10*3/uL 4.4-11.0 [facility] White blood cell countOrdere d By: David Phelps on 11-01-2024 White blood cell count 0-5 SEEN /hpf 0-5 [facility] CNPNon 10-14-2024 CNPN Telephone (NREUS2) ANNE MCGOVERN ([id number]) 1950 F Date Time Provider Department 10/14/24 JESSIE LUKE NRJOELS2 During your visit today, we [...] mg patches. He is requesting a call FRANCESCA. He is aware that if something worsens to seek nearest ED. Robert Serrano APRN.CNP 10/14/2024 5:08 PM Signed Sent over RX [...] her symptoms. I told them to let Jessie know next week if she has improved. Robert Serrano APRN.CNP Ligia Chen 10/26/2024 10:31 AM Signed calling to say that symptoms seem better since going back to 4.6 mg. He wants to know if this is where she should stay? Should medication be changed in the future. He is requesting a call at [phone]. Cat Blood APRN.CNP 11/01/2024 11:08 AM Addendum Since she is doing better back down, she can stay on the Exelon 4.6mg for now and it can be reassessed at her upcoming visit with Jessie in November. However, Jessie will be made aware of all of [...] Do not use rubbing alcohol or nail faroese remover, as this can worsen the irritation. [...] - Rash Date Reviewed: 09/09/2024 Reviewed by: Jessie Luke APRN.QUALITY CONSULTANT - Fully Assessed Reason for Visit: Medication [...] Of Date: 10/14/2024 (None) Encounter Status:Closed by ROBERT SERRANO on 10/14/24 [facility] CNOVestefani 09-09-2024 CNOV Office Visit (NRMDN) ANNE MCGOVERN ([id number]) 1950 F Date Time Provider Department 09/09/24 10:00 AM JESSIE LUKE During your visit today, we recorded the following information about you: Pulse Blood pressure Weight Height 71/minute 122/72 57.3 kg 1.676 m Jessie Luke APRN.LAKISHA 09/09/2024 11:27 AM Signed Continue taking your [...] Exelon patch prescription has been sent to [facility] in [place]. Use proper patch rotation each day. Attend [...] provided number or send a message through [employer]. Jessie Luke APRN.QUALITY CONSULTANT 09/09/2024 11:49 AM Signed [facility] - FOLLOW UP EVALUATION Recording using [employer] software for draft documentation of the visit was discussed with the patient/authorized registered representative; all questions welcomed and answered. Patient/authorized registered representative agreed to proceed I had the [...] symptoms. - Followed by Dr. Peters in [place] every 6 months; last seen in May. - Engages in physical therapy, occupational therapy, and speech therapy monthly in [place] in past. - Participates in boxing exercises. [...] shows the (more content not included)... Normal [facility] CNOVon 08-03-2024 CNOV Office Visit (PSYTMN ) ANNE MCGOVERN ([id number]) 1950 F Date Time Provider Department 08/03/24 12:30 PM EVERETTE REGAN PSYTMN During your visit today, we recorded the following information about you: Everette Regan PSYD 08/09/2024 10:57 AM Signed [facility] Section of Neuropsychology Neuropsychological Evaluation Report CONFIDENTIAL Patient: Anne Mcgovern Age: [age] year old : 1950 Sex: female Date of Evaluation: 08/03/2024 History and Presenting Problem: Mrs. Anne Mcgovern is a 74 year old woman with Parkinson's disease referred for evaluation of cognitive and memory changes. She was accompanied by her . She recently moved from [place] to [place] (July 2023), though she will continue to live in [place] during the winter. She was scheduled to undergo neuropsychological testing in [place], but it was not completed before she moved to [place]. Testing was order based on a cognitive [...] up private 1:1 PT/OT for her in [place]. She is starting to walk more now [...] SURGERY solifenacin ([employer]) 10 mg tablet Coenzyme T75-Hlcwvrh E 100-5 mg-unit cap Take by mouth. [...] classes in technical school. 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 Social History: She lives with her . She has two step-children in [place]. She has great nieces who live locally. Her have a lot of family in the area. Behavioral Observations: She was appropriat (more content not included)... Normal [facility] Vital Signs Date Time Vital Sign Value Performing Clinician Nasir mcguire 09-09-2024 10:05-0400 Body height 167.6 cm Jessie Marly WEB SITE SPECIALIST.[facility] Work Phone: [facility] 09-09-2024 10:05-0400 Body mass index (BMI) [Ratio] 20.39 kg/m2 Jessie Marly WEB SITE SPECIALIST.[facility] Work Phone: [facility] 09-09-2024 10:05-0400 Body weight 57.3 kg Jessie Marly WEB SITE SPECIALIST.[facility] Work Phone: [facility] 09-09-2024 10:05-0400 Diastolic blood pressure 72 mm[Hg] Jessie Marly WEB SITE SPECIALIST.[facility] Work Phone: [facility] 09-09-2024 10:05-0400 Heart rate 71 /min Jessie Marly WEB SITE SPECIALIST.[facility] Work Phone: [facility] 09-09-2024 10:05-0400 SaO2% (BldA) [Mass fraction] 99 % Jessie Marly WEB SITE SPECIALIST.[facility] Work Phone: [facility] 09-09-2024 10:05-0400 Systolic blood pressure 122 mm[Hg] Jessie Marly WEB SITE SPECIALIST.[facility] Work Phone: [facility] 03-22-2024 11:07-0400 Body height 167.6 cm Marilu Martinez MD Work Phone: [facility] 03-22-2024 11:07-0400 Body mass index (BMI) [Ratio] 19.93 kg/m2 Marilu Martinez MD Work Phone: [facility] 03-22-2024 11:07-0400 Body weight 56 kg Marilu Maritnez MD Work Phone: [facility] 03-22-2024 11:0400 SaO2% (BldA) [Mass fraction] 98 % Marilu Martinez MD Work Phone: [facility] Encounters Encounter Date Encounter Type Care Provider Facility Start: 03-31-2025 End: 03-31-2025 ambulatory JESSIE MARLY Facility:[facility] Start: 12-16-2024 End: 12-16-2024 Telemedicine consultation with patient Jessie Luke WEB SITE SPECIALIST.QUALITY CONSULTANT Work Phone: Neurology Start: 12-16-2024 End: 12-16-2024 ambulatory Jessie Luke WEB SITE SPECIALIST.QUALITY CONSULTANT Work Phone: Neurology Comment on above: Parkinson's disease with dyskinesia and fluctuating manifestations (HCC) (Primary Dx); Dementia due to Parkinson's disease, without behavioral disturbance, psychotic disturbance, mood disturbance, or anxiety, unspecified dementia severity (HCC); Adverse effect of drug that acts primarily on skin, initial encounter Start: 12-13-2024 End: 12-13-2024 Refill Jessie Marly WEB SITE SPECIALIST.QUALITY CONSULTANT Work Phone: [facility] Comment on above: Refill Request Start: 12-12-2024 End: 12-12-2024 Telephone encounter Marilu Martinez MD Work Phone: Neurology Comment on above: Insurance Authorizat ion Start: 12-08-2024 End: 12-09-2024 Refill Jessietej Luke WEB SITE SPECIALIST.QUALITY CONSULTANT Work Phone: [facility] Comment on above: Refill Request Start: 11-12-2024 End: 11-14-2024 Refill Robert Serrano WEB SITE SPECIALIST.QUALITY CONSULTANT Work Phone: Neurology Comment on above: Refill Request Start: 11-03-2024 End: 11-03-[address] David Phelps MD Work Phone: [facility] Work Phone: Start: 11-03-2024 End: 11-03-2024 Patient encounter procedure Darcy [place] Work Phone: Start: 11-03-2024 End: 11-03-[facility] Start: 11-01-2024 End: 11-01-[address] David Phelps MD Work Phone: [facility] Work Phone: Start: 11-01-2024 End: 11-01-[address] David Phelps MD -Laboratory Work Phone: Start: 11-01-2024 End: 11-01-2024 Patient encounter procedure Darcy Pedraza [place] -[facility] Work Phone: Start: 11-01-2024 End: 11-01-2024 [facility] Work Phone: Start: 11-01-2024 End: 11-01-2024 ambulatory David Phelps Facility:[facility] Start: 09-12-2024 End: 09-12-2024 ambulatory [facility] Facility:[facility] Start: 09-09-2024 End: 09-09-2024 Office outpatient visit 40 minutes Jessie Luke APRN.[facility] Work Phone: Neurology Comment on above: Parkinson's disease with dyskinesia and fluctuating manifestations (HCC) (Primary Dx); Dementia due to Parkinson's disease, without behavioral disturbance, psychotic disturbance, mood disturbance, or anxiety, unspecified dementia severity (HCC); Urinary urgency Start: 09-09-2024 End: 09-09-2024 ambulatory JESSIE LUKE Facility:[facility] Start: 08-03-2024 End: 08-04-2024 ambulatory [facility] Facility:[facility] Start: 03-22-2024 End: 03-22-2024 Patient encounter procedure Marilu Martinez MD Work Phone: Neurology Comment on above: Parkinson's disease with dyskinesia and fluctuating manifestations (HCC) (Primary Dx) Procedures Date Procedure Procedure Detail Performing Clinician Start: 11-01-2024 Urnls dip stick/tabl et reagent auto microscopy Dr. David Phelps MD Work Phone: Start: 08-06-2022 Lipid 1996 panel - S simon or Plasma Marilu Martinez MD Work Phone: Plan of Treatment Date Care Activity Detail Author Start: 08-07-2027 Lipid panel Lipid Screening [facility] Start: 08-06-2025 Diabetes Screening Diabetes Screenin g [facility] Start: 01-23-2025 Influenza vaccination [facility] Start: 12-16-2024 End: 12-16-2024 Follow-up encounter 12/16/2024 1:00 PM EDT [facility] Neurology [address] [address] Jessie Luke, WEB SITE SPECIALIST.QUALITY CONSULTANT [address] [place] [address] 3 month follow up Neurology Comment on above: 3 month follow up Start: 11-03-2024 Protein measurement [facility] Start: 05-25-2024 Advance Directive Discussion Advance Directive Discussion [facility] Start: 05-25-2024 Medicare Advantage Annual Wellness Visit Medicare Advantage Annual Wellness Visit [facility] Start: 01-24-2024 Covid-19 Vaccine ( season) Covid-19 Vaccine ( season) [facility] Start: 01-24-2024 Influenza vaccination Influenza Vacc ine (#1) [facility] Start: 2023 RSV Vaccine (1 - 1-d ose 75+ series) RSV Vaccine (1 - 1-dose 75+ series) [facility] Start: 05-25-2023 Advance Directive Discussion Advance Directive Discussion [facility] Start: 07-29-2019 Pneumococcal Vaccine : 50+ (2 of 2 - PPSV23) Pneumococcal Vaccine: 50+ (2 of 2 - PPSV23) [facility] Start: 07-29-2019 Pneumococcal Vaccine : 65+ (2 of 2 - PPSV23 or PCV20) Pneumococcal Vaccine: 65+ (2 of 2 - PPSV23 or PCV20) [facility] Start: 01-19-2012 Shingrix Vaccine (2 of 3) Shingrix Vaccine (2 of 3) [facility] Start: 1993 Screening for malign ant neoplasm of colon [facility] Start: 1967 Urine microalbumin profile DTaP,Tdap,Td Vaccine (1 - Tdap) [facility] Start: 1966 Anxiety Screening Anxiety Screening [facility] Start: 1966 Depression Screening Depression Scre ening [facility] Start: 1966 Hepatitis C screening Hepatitis C Sc [facility] Protein measurement [facility] Immunizations Immunization Date Immunization Notes Care Provider Fa cility 02-19-2018 influenza virus vacc ine, unspecified formulation Marilu Martinez MD Work Phone: [facility] Payers Date Payer Category Payer Self-pay 2023 Medicare [employer] MEDICARE A ETNA MEDICARE PPO [id number] 2023-Present [phone] [address] [place] [address] PPO [id number] 2023 Medicare (Managed Care) [employer] [place] [id number] 2023 Private Health Insurance 101 [id number] Unknown [id number] Unknown [id number] Unknown [id number] Social History Date Type Detail Facility Start: 03-22-2024 [facility] History of tobacco use Current smoker [facility] History of tobacco use Cigarette Smoker [facility] Start: 03-22-2024 Tobacco use and exposure Smokeless tobacco non-user [facility] Start: 03-22-2024 End: 09-09-2024 Alcoholic beverage intake Not Asked [facility] Start: 03-22-2024 End: 12-15-2024 History of Social function [facility] Start: 03-22-2024 End: 12-15-2024 Tobacco use panel [facility] National Score (1-100), lower number is lower risk 35 [facility] Start: 03-22-2024 Alcohol Comment [facility]ly [facility] Start: 1950 Sex assigned at Not on file [facility] Tobacco smoking stat [facility] Unknown if ever smoked [facility] Work Phone: Start: 1950 Sex Assigned At Female [facility] Clinical Notes 03-22-2024 to 03-31-2025 Patient InstructionsJessie Luke APRN.LAKISHA - 12/16/2024 1:19 PM EDTTelephone Encounter - Cat Blood APRN.LAKISHA - 12/13/2024 12:03 PM EDT Note Date & Type Note Facility 03-31-2025 Note HNO ID: [id number] Author: JESSIE LUKE APRN.LAKISHA Service: ? Author Type: Nurse Practitioner Type: Progress Notes Filed: 03/31/2025 16:35 Note Text: [facility] - FOLLOW UP EVALUATION I had the pleasure of seeing Ms. Mcgovern for follow-up today. She is a 74 year old right-handed female with a history of PD since 2010. She is seen with her . Subjective Previous Plan- 12/16/2024 Visit: 1. Dementia due to Parkinson's disease, without behavioral disturbance, psychotic disturbance, mood disturbance, or anxiety, unspecified dementia severity (HCC) (G20.A1) - Recent trial of Exelon patch 9.5 mg resulted in significant nausea, headache, and emesis; reverted to 4.6 mg patch, but persistent localized erythema and pruritus at application sites. - Discontinue Exelon patch 4.6 mg. - Start donepezil 5 mg PO at bedtime; discussed similar side effect profile to Exelon, including potential for nausea, and rationale for cautious titration. - Follow-up in 3 months to assess donepezil tolerance and efficacy. 2. Parkinson's disease with dyskinesia and fluctuating manifestations (HCC) (G20.B2) - Carbidopa-levodopa adjusted by patients , currently administered every 2.5 hours (6-7 doses/day) with two controlled-release tablets at bedtime; no hallucinations, nausea, or dizziness reported, but some dyskinesia noted. - Discussed option to add rasagiline to extend carbidopa-levodopa efficacy and potentially increase dosing interval to 3-3.5 hours; plan to revisit at next follow-up in 3 months. - Continue current carbidopa-levodopa regimen. - Follow-up in 3 months to reassess medication regimen and consider addition of rasagiline. Interval History: Anne Mcgovern is a 74-year-old female with dementia, Parkinson's disease, and orthostatic hypotension presenting for follow-up. She is accompanied by her , who provides additional history. Anne is currently taking donepezil 5 mg daily, which she is tolerating well without any side effects. She increased carbidopa-levodopa to 7 times daily as her Sinemet is only lasting 2 hours now. Her reports that if she goes longer than 2 hours and 15 minutes between doses, she experiences fogging, moves slowly, and struggles with movement. She is also taking a controlled-release dose at bedtime. She is also taking midodrine once daily in the morning for orthostatic hypotension. She reports dizziness at times, but denies falls or syncope. She has a history of one syncopal episode in her life, 3-4 years ago. She denies hallucinations, but reports seeing an animal at the beginning of her illness. She is active and exercises regularly. She attends 3 workouts per week at [employer], including 1 class and 1 one-on-one session with an instructor. She also attends Pilates to music twice a month at a congregational. She recently completed a workout room in her basement with boxing, an inversion table, a treadmill, weights, and balance equipment. House construction is near complete. Plans to live in [place] and visit [place] for a month in winter. She will see Dr. Yap in May while in [place]. Movement Disorders Medications Schedule - as of the start of the visit: Medications 8a 10:30a 1p 3:30p 6p 8:30p bedtime Sinemet (carbidopa-levodopa) 25/100 1.5 1.5 1.5 1.5 1.5 1.5 Sinemet (carbidopa-levodopa) CR 25/100 2 Donepezil 5 mg 1 midodrine 5 mg 1-2 times per day Parkinson's Motor Complications Medication duration: 3.5 hours Wearing off: yes Painful off-state dystonia: no Dyskinesia: yes Prior Anti-Parkinson Therapies Carbidopa/Levodopa Carbidopa/Levodopa CR Questionnaires: Mood/Behavior Depression: PHQ-9 Score: 5 usually representing mild (5-9) depression. Anxiety: ALPHONSE-7 Total Score: 5 usually representing mild (5-9) anxiety. Finally, the following table shows the patient's overall global physical and mental health using the PROMIS scale: PROMIS-10 Flowsheet Row Office Visit from 03/31/2025 in Neurology [facility] from 12/16/2024 in Neurology Global Physical Health T Score 47.7 44.9 Global Mental Health T Score 45.8 50.8 0-10 Standard Pain Scale 5 4 *PROMIS-10 scoring scale: mean = 50, over 50 is above average, under 50 is below average ALLERGIES Allergen Reactions Neomycin Rash Sulfa (Sulfonamide * Rash Thimerosal Rash Current Outpatient Medications Medication Sig GEMTESA 75 mg tablet 75 mg. donepezil (ARICEPT) 5 mg tablet Take 1 tablet by mouth daily at bedtime. carbidopa-levodopa (SINEMET 25-100) 25-100 mg per tablet Take 1.5 tablets by mouth 6 times per day.. (Patient taking differently: Take 1.5 tablets by mouth 7 times per day. Pt takes 1.5 tabs every 2 hours upon awakening.) clobetasol (TEMOVATE) 0.05 % ointment Apply topically 2 times daily to affected area for 2 weeks midodrine (PROAMITINE) 5 mg tablet Take 5 mg by mouth. carbidopa-levodopa CR (SINEMET CR) 25-100 mg per ta (more content not included)... [facility] 12-16-2024 Instructions Jessie Luke APRN.QUALITY CONSULTANT - 12/16/2024 1:58 PM EDT It was a pleasure to see you today. We addressed the following diagnoses: Parkinson's disease with dyskinesia and fluctuating manifestations (hcc) (primary encounter diagnosis) Dementia due to parkinson's disease, without behavioral disturbance, psychotic disturbance, mood disturbance, or anxiety, unspecified dementia severity (hcc) Adverse effect of drug that acts primarily on skin, initial encounter My recommendations are as follows: - Stop using the Exelon (rivastigmine) 4.6 mg patch immediately; remove patch tonight. - Beginning tomorrow night, take donepezil (Aricept) 5 mg by mouth once daily at bedtime; prescription has been sent to [facility] in [place]. - Continue donepezil 5 mg daily at bedtime, you will take this for the next 3 months until you return for your follow up. We can reassess at that time and consider an increase to 10 mg. - Monitor for nausea, headache, or stomach upset; if you cannot keep the medicine down or have new/unexpected side effects, contact our office. - Continue your current carbidopa-levodopa schedule as you have been--approximately every 2 to 3 hours during the day (six to seven doses) plus two controlled-release doses at bedtime so as not to change too many medications at one time. - We will review your memory treatment and Parkinson s medicines in about three months; at that visit we may consider adding rasagiline (Azilect) to help your carbidopa-levodopa last longer. - Follow up in 3 months with me and Dr. Martinez in 1 year. You are scheudled with Dr. Peters in May. Movement Disorders Medication Schedule: Medications 8a 10:30a 1p 3:30p 6p 8:30p bedtime Sinemet (carbidopa-levodopa) 25/100 1.5 1.5 1.5 1.5 1.5 1.5 Sinemet (carbidopa-levodopa) CR 25/100 2 Exelon Patch 4.6 mg Stop Start Donepezil 5 mg 1 midodrine 5 mg 1-2 times per day Return at or around: 03/18/25 Your current [facility] Movement Disorders Team includes: Primary Movement Disorders Neurologist: Marilu Martinez MD Primary Movement Disorders Advanced Practice Provider: Jessie Luke CNP If there are any concerns before your next visit, please call or you can send a message through [employer]. You can also now schedule and select appointments through [employer]. Jessie Luke APRN.CNP documented in this encounter [facility] 12-16-2024 Note HNO ID: [id number] Author: JESSIE LUKE APRN.CNP Service: ? Author Type: Nurse Practitioner Type: Progress Notes Filed: 12/16/2024 13:58 Note Text: [facility] - FOLLOW UP EVALUATION - VIRTUAL VISIT We had a visit using: [employer] I have communicated my name and active licensure. The patient's identity and physical location were verified at the time of this visit. Either the patient or their legal registered representative has been informed of the risks and benefits of -- and alternatives to -- treatment through a remote evaluation and consents to proceed with the evaluation remotely. Recording using [employer] software for draft documentation of the visit was discussed with the patient/authorized registered representative; all questions welcomed and answered. Patient/authorized registered representative agreed to proceed Primary Movement Disorders Neurologist: Marilu Martinez MD Primary Movement Disorders MULU: Jessie Luke CNP I had the pleasure of seeing Ms. Mcgovern for follow-up today. She is a 74 year old right-handed female with a history of PD since 2010. She is seen with her . Subjective During her previous visit the following plan was made: Previous plan- 09/09/2024 Visit: 1. Dementia due to Parkinson's [...] effects. Interested in clinical research? Not discussed Interval History: Anne Mcgovern is a 74-year-old female with a history of Parkinson's disease and cognitive impairment, presenting for follow-up. She is accompanied by her caregiver, who provides additional history. Anne has been using the Exelon patch 4.6 mg for cognitive impairment. When patient finished one month of Exelon Patch 4.6 mg she then increased to the 9.5mg patch. The first day she had this on she developed nausea, vomiting, no appetite. stopped it after speaking with our office for a few days and then restarted the 4.6mg patch which she has been using since. Denies nausea or vomiting on lower dose. But she has raised red patches when the patch is removed and is itchy for the first day or so after patch is removed. The redness of the patches lasts for a few weeks before subsiding. Anne has a 14-year history of Parkinson's disease and is currently taking carbidopa-levodopa. Her caregiver administers 1.5 tablets every 2.5 hours, which has increased the total dosage to 6x/day from 5x/day. Has been in contact with Dr. Peters regarding the adjustment. Taking Sinemet 3 hours apart was not lasting dose to dose, she would start having freezing of gait. Anne does not report hallucinations, nausea, or dizziness, though she has a history of low blood pressure. Mild dyskinesia is observed, particularly in the head, but it does not significantly bother her. Thinks she was on Azilect when first diagnosed. Denies any side effects but that it was stopped as it was not working and started on Sinemet. Anne participates in physical therapy once a week and attends group therapy for Parkinson's disease. She also engages in music Pilates two to three times a month and participates in a Speak Out program with [facility] to improve her speech. She maintains a good appetite and has only gained five pounds since high school. She is socially active, attending congregational and participating in community activities. Movement Disorders Medications Schedule - as of the start of the visit: Medications 8a 10:30a 1p 3:30p 6p 8:30p bedtime Sinemet (carbidopa-levodopa) 25/100 1.5 1.5 1.5 1.5 1.5 1.5 Sinemet (carbidopa-levodopa) CR 25/100 2 Exelon Patch 4.6 mg Stop Start Donepezil 5 mg 1 midodrine 5 mg 1-2 times per day Parkinson's Motor Complications Medication duration (more content not included)... [facility] 12-16-2024 History of Present illness Narrative [facility] - FOLLOW UP EVALUATION - VIRTUAL VISIT We had a visit using: [employer] I have communicated my name and active licensure. The patient's identity and physical location were verified at the time of this visit. Either the patient or their legal registered representative has been informed of the risks and benefits of -- and alternatives to -- treatment through a remote evaluation and consents to proceed with the evaluation remotely. Recording using [employer] software for draft documentation of the visit was discussed with the patient/authorized registered representative; all questions welcomed and answered. Patient/authorized registered representative agreed to proceed Primary Movement Disorders Neurologist: Marilu Martinez MD Primary Movement Disorders MULU: Jessie Luke CNP I had the pleasure of seeing Ms. Mcgovern for follow-up today. She is a 74 year old right-handed female with a history of PD since 2010. She is seen with her . Subjective During her previous visit the following plan was made: Previous plan- 09/09/2024 Visit: 1. Dementia due to Parkinson's [...] effects. Interested in clinical research? Not discussed Interval History: Anne Mcgovern is a 74-year-old female with a history of Parkinson's disease and cognitive impairment, presenting for follow-up. She is accompanied by her caregiver, who provides additional history. Anne has been using the Exelon patch 4.6 mg for cognitive impairment. When patient finished one month of Exelon Patch 4.6 mg she then increased to the 9.5mg patch. The first day she had this on she developed nausea, vomiting, no appetite. stopped it after speaking with our office for a few days and then restarted the 4.6mg patch which she has been using since. Denies nausea or vomiting on lower dose. But she has raised red patches when the patch is removed and is itchy for the first day or so after patch is removed. The redness of the patches lasts for a few weeks before subsiding. Anne has a 14-year history of Parkinson's disease and is currently taking carbidopa-levodopa. Her caregiver administers 1.5 tablets every 2.5 hours, which has increased the total dosage to 6x/day from 5x/day. Has been in contact with Dr. Peters regarding the adjustment. Taking Sinemet 3 hours apart was not lasting dose to dose, she would start having freezing of gait. Anne does not report hallucinations, nausea, or dizziness, though she has a history of low blood pressure. Mild dyskinesia is observed, particularly in the head, but it does not significantly bother her. Thinks she was on Azilect when first diagnosed. Denies any side effects but that it was stopped as it was not working and started on Sinemet. Anne participates in physical therapy once a week and attends group therapy for Parkinson's disease. She also engages in music Pilates two to three times a month and participates in a Speak Out program with [facility] to improve her speech. She maintains a good appetite and has only gained five pounds since high school. She is socially active, attending congregational and participating in community activities. Movement Disorders Medications Schedule - as of the start of the visit: Medications 8a 10:30a 1p 3:30p 6p 8:30p bedtime Sinemet (carbidopa-levodopa) 25/100 1.5 1.5 1.5 1.5 1.5 1.5 Sinemet (carbidopa-levodopa) CR 25/100 2 Exelon Patch 4.6 mg Stop Start Donepezil 5 mg 1 midodrine 5 mg 1-2 times per day Parkinson's Motor Complications Medication duration: 3.5 hours Wearing off: yes Painful off-state dystonia: no Dyskinesia: yes Prior Anti-Parkinson Therapies Carbidopa/Levodopa Carbidopa/Levodopa CR ALLERGIES Allergen Reactions Neomycin Rash Sulfa (Sulfonamide * Rash Thimerosal Rash Current Outpatient Medications Medication Sig donepezil (ARICEPT) 5 mg tablet Take 1 tablet by mouth daily at bedtime. carbidopa-levodopa (SINEMET 25-100) 25-100 mg per tablet Take 1.5 tablets by mouth 6 times per day.. clobetasol (TEMOVATE) 0.05 % ointment Apply topically 2 times daily to affected area for 2 weeks midodrine (PROAMITINE) 5 mg tablet Take 5 mg by mouth. carbidopa-levodopa CR (SINEMET CR) 25-100 mg per tablet Take 2 tablets by mouth once daily. At bedtime No current facility-administered medications for this visit. Questionnaires: Mood/Behavior Depression: PHQ-9 Score: 2 usually representing no significant (0-4) depression. Anxiety: ALPHONSE-7 Total Score: 1 usually representing no significant (0-4) anxiety. Finally, the following table shows the patient's overall global physical and mental health using the PROMIS scale: PROMIS-10 Flowsheet Row [facility] from 12/16/2024 in Neurology Office Visit from 09/09/2024 in Neurology Global Physical Health T Score 44.9 47.7 Global Mental Health T Score 50.8 53.3 0-10 Standard Pain Scale 4 4 *PROMIS-10 scoring scale: mean = 50, over 50 is above average, under 50 is below average Objective - Neurological: - CNVII: Mild dyskinesia noted in head. - Gait: No issues with balance or ambulation. - Skin: Erythematous, raised, pruritic welts at previous patch sites on chest. -No tremor noted. -Slight bradykinesia. Assessment and Plan: Assessment Ms. Mcgovern is a right-handed 74 year old female with PD. Previously followed at [facility] in [facility]. Moved to [place] to be closer to family and plans to maintain care in both [place] and [place]. The following are the current problems noted and addressed during this visit: Parkinson's disease with dyskinesia and fluctuating manifestations (hcc) (primary encounter diagnosis) Dementia due to parkinson's disease, without behavioral disturbance, psychotic disturbance, mood disturbance, or anxiety, unspecified dementia severity (hcc) Adverse effect of drug that acts primarily on skin, initial encounter Plan 12/16/2024 Visit: 1. Dementia due to Parkinson's disease, without behavioral disturbance, psychotic disturbance, mood disturbance, or anxiety, unspecified dementia severity (HCC) (G20.A1) - Recent trial of Exelon patch 9.5 mg resulted in significant nausea, headache, and emesis; reverted to 4.6 mg patch, but persistent localized erythema and pruritus at application sites. - Discontinue Exelon patch 4.6 mg. - Start donepezil 5 mg PO at bedtime; discussed similar side effect profile to Exelon, including potential for nausea, and rationale for cautious titration. - Follow-up in 3 months to assess donepezil tolerance and efficacy. 2. Parkinson's disease with dyskinesia and fluctuating manifestations (HCC) (G20.B2) - Carbidopa-levodopa adjusted by patients , currently administered every 2.5 hours (6-7 doses/day) with two controlled-release tablets at bedtime; no hallucinations, nausea, or dizziness reported, but some dyskinesia noted. - Discussed option to add rasagiline to extend carbidopa-levodopa efficacy and potentially increase dosing interval to 3-3.5 hours; plan to revisit at next follow-up in 3 months. - Continue current carbidopa-levodopa regimen. - Follow-up in 3 months to reassess medication regimen and consider addition of rasagiline. Updated Movement Disorder Medication Schedule: Medications 8a 10:30a 1p 3:30p 6p 8:30p bedtime Sinemet (carbidopa-levodopa) 25/100 1.5 1.5 1.5 1.5 1.5 1.5 Sinemet (carbidopa-levodopa) CR 25/100 2 Exelon Patch 4.6 mg Stop Start Donepezil 5 mg 1 midodrine 5 mg 1-2 times per day Level of service : 68115 (40-68 min). Time spent 56 min on the day of service, which included preparing to see the patient, [id number] patient care, completing clinical documentation, obtaining and/or [...] hesitate to call with any questions. Sincerely, Jessie Luke APRN.CNP documented in this encounter [facility] 12-13-2024 Telephone encounter Note Chart was reviewed and this was sent in Jessie's absence. YUE Hernandez [facility] 12-13-2024 Miscellaneous Notes Chart was reviewed and this was sent in Jessie's absence. YUE Hernandez Last appt 09/09/2024 Jessie Patient has appt this Thursday but doesn't have enough patches. asks for a 30 day supply and then they will discuss at the appointment. Needs to orange picking supervisor francesca. Requested Prescriptions Pending Prescriptions Disp Refills rivastigmine (EXELON PATCH) 4.6 mg/24 hour patch 30 patch 0 Sig: Apply 1 patch as directed once daily. Apply patch to skin and leave on for 24 hours. Then remove and place a patch at new site. documented in this encounter [facility] 12-13-2024 Telephone encounter Note Last appt 09/09/2024 Jessie Patient has appt this Thursday but doesn't have enough patches. asks for a 30 day supply and then they will discuss at the appointment. Needs to orange picking supervisor francesca. Requested Prescriptions Pending Prescriptions Disp Refills rivastigmine (EXELON PATCH) 4.6 mg/24 hour patch 30 patch 0 Sig: Apply 1 patch as directed once daily. Apply patch to skin and leave on for 24 hours[address] Then remove and place a patch at new site. [facility] 12-12-2024 Telephone encounter Note Received an approval letter from [facility] for carb/levo 25-100. Case # [id number] [facility] 12-12-2024 Miscellaneous Notes Received an approval letter from [facility] for carb/levo 25-100. Case # [id number] documented in this encounter [facility] 12-08-2024 Telephone encounter Note Pt's requesting refill as follows: Last FUV August 2024 with Jessie Bush Pt's notes that they increased to 6 x daily per discussion with Jessie at last OV - was told to increase if needed. He forgot to call the office and was going to let her know at next week's OV but she will be out of medication before this time. Requested Prescriptions Pending Prescriptions Disp Refills carbidopa-levodopa (SINEMET 25-100) 25-100 mg per tablet 225 tablet 5 Sig: Take 1.5 tablets by mouth 6 times per day.. Upon approval, script will be sent electronically to the patient's pharmacy. Isabela Raygoza, Customer Data Technician III [facility] 12-08-2024 Miscellaneous Notes Pt's requesting refill as follows: Last FUV August 2024 with Jessie Bush Pt's notes that they increased to 6 x daily per discussion with Jessie at last OV - was told to increase if needed. He forgot to call the office and was going to let her know at next week's OV but she will be out of medication before this time. Requested Prescriptions Pending Prescriptions Disp Refills carbidopa-levodopa (SINEMET 25-100) 25-100 mg per tablet 225 tablet 5 Sig: Take 1.5 tablets by mouth 6 times per day.. Upon approval, script will be sent electronically to the patient's pharmacy. Isabela Raygoza, Customer Data Technician III documented in this encounter [facility] 11-14-2024 Telephone encounter Note Pt requesting refill as follows: Last FUV August 2024 with Erin. Bush Requested Prescriptions Pending Prescriptions Disp Refills rivastigmine (EXELON PATCH) 4.6 mg/24 hour patch 90 patch 3 Sig: Apply 1 patch as directed once daily. Apply patch to skin and leave on for 24 hours. Then remove and place a patch at new site. Upon approval, script will be sent electronically to the patient's pharmacy. Isabela Raygoza Customer Data Technician III [facility] 11-14-2024 Miscellaneous Notes Pt requesting refill as follows: Last FUV August 2024 with JessieAmy Bush Requested Prescriptions Pending Prescriptions Disp Refills rivastigmine (EXELON PATCH) 4.6 mg/24 hour patch 90 patch 3 Sig: Apply 1 patch as directed once daily. Apply patch to skin and leave on for 24 hours. Then remove and place a patch at new site. Upon approval, script will be sent electronically to the patient's pharmacy. Isabela Raygoza, Customer Data Technician III documented in this encounter [facility] 11-01-2024 Evaluation note Diagnosis Onset Date Resolution Hx of Crohn's disease acute Oct e 2024 10:32am [facility] Work Phone: 1(173) 462-719804-21-2025 NoteHNO ID: [id number] Author: EVERETTE REGAN PSYD Service: ? Author [...] visit. Either the patient or their legal registered representative has been informed of the risks and benefits of -- and alternatives to -- treatment through a remote evaluation and consents to proceed with the evaluation remotely. Time = 45 min, including face to face time with patient and family. Everette Regan PsyD, [facility]- Neuropsychology Section Neurological [place] [facility]04-18-2025 NoteHNO ID: [id number] Author: JESSIE LUKE APRN.LAKISHA Service: ? Author Type: Nurse Practitioner Type: Progress Notes Filed: 09/09/2024 11:49 Note Text: [facility] - FOLLOW UP EVALUATION Recording using [employer] software for draft documentation of the visit was discussed with the patient/authorized registered representative; all questions welcomed and answered. Patient/authorized registered representative agreed to proceed I had the [...] symptoms. - Followed by Dr. Peters in [place] every 6 months; last seen in May. - Engages in physical therapy, occupational therapy, and speech therapy monthly in [place] in past. - Participates in boxing exercises. [...] once daily. No curren (more content not included)...[facility]04-18-2025 History of Present illness Narrative* Jessie Luke APRN.QUALITY CONSULTANT - 09/09/2024 11:44 AM EDT [facility] - FOLLOW UP EVALUATION Recording using [employer] software for draft documentation of the visit was discussed with the patient/authorized registered representative; all questions welcomed and answered. Patient/authorized registered representative agreed to proceed I had the [...] symptoms. - Followed by Dr. Peters in [place] every 6 months; last seen in May. - Engages in physical therapy, occupational therapy, and speech therapy monthly in [place] in past. - Participates in boxing exercises. [...] amplitude decrements near the end of the 10taps. Finger Taps Left 1-Slight. a) the regular [...] the tapping movements, b) mild slowing, c) theamplitude decrements midway in the task. Leg Agility [...] old female with PD. Previously followed at [facility] in [facility]. Moved to [place] to be closer to family and plans to maintain care in both [place] and [place]. The following are the current problems noted and addressed during this visit: Parkinson's disease with dyskinesia and fluctuating manifestations (hcc) (primary encounter diagnosis) Dementia due to parkinson's disease, without behavioral disturbance, psychotic disturbance, mood disturbance, or anxiety, unspecified dementia severity (hcc) Urinary urgency Plan 09/09/2024 Visit: 1. Dementia due to Parkinson's disease, without behavioral disturbance, psychotic disturbance, mooddisturbance, or anxiety, unspecified dementia severity (HCC) (G20.A1) [...] or around: 12/09/24 Level of service : 30924 (40-68 min). Time spent 59 min on the day of service, which included preparing to see the patient, deik-gz-zqdw patient care, completing clinical documentation, obtaining and/or [...] hesitate to call with any questions. Sincerely, Jessie Luke APRN.LAKISHA [facility]04-18-2025 Instructions* Patient Instructions* Jessie Luke APRN.CNP - 09/09/2024 11:27 AM EDT [...] [facility] [place]. Use proper patch rotation each day. Attend [...] provided number or send a message through Spritz. documented in this [facility]03-12-2025 NoteHNO ID: [id number] Author: EVERETTE REGAN PSYD Service: ? Author Type: Psychologist Type: Progress Notes Filed: 08/09/2024 10:57 Note Text: [facility] Neurological [place] Section of Neuropsychology Neuropsychological Evaluation Report CONFIDENTIAL Patient: Anen Mcgovern Age: [age] year old : 1950 Sex: female Date of Evaluation: 08/03/2024 History and Presenting Problem: Mrs. Anne Mcgovern is a 74 year old woman with Parkinson's disease referred for evaluation of cognitive and memory changes. She was accompanied by her . She recently moved from [place] to [place] (July 2023), though she will continue to live in [place] during the winter. She was scheduled to undergo neuropsychological testing in [place], but it was not completed before she moved to [place]. Testing was order based on a cognitive [...] up private 1:1 PT/OT for her in [place]. She is starting to walk more now [...] SURGERY solifenacin (VESICARE) 10 mg tablet Coenzyme Y48-Ghrtawx E 100-5 mg-unit cap Take by mouth. [...] classes in technical school. 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 Social History: She lives with her . She has two step-children in [place]. She has great nieces who live locally. Her have a lot of family in the area. Behavioral Observations: She was appropriately dressed and well-groomed. Speech was normal during conversation. Language was notable for word finding deficits. Vision with glasses and hearing were adequate for the purposes of this kenyon (more content not included)...[facility]10-29-2024 Instructions* Patient Instructions* Marilu Martinez MD - 03/22/2024 12:01 PM [...] or you can send a message through Spritz. You can also now schedule and select appointments through Spritz. Marilu Martinez MD Fatigue and Parkinson s If you experience fatigue and sleep problems, you are not alone. These are common symptoms of Parkinson s disease (PD). In fact, fatigue can occur at any stage of Parkinson s, and many people report that fatigue is one of the symptoms that affects them the most. It can have a greater impact on yourquality of life than motor symptoms like stiffness, slowness or walking problems. But doctors don t always ask about fatigue, and people with Parkinson s and their care partners dont always know to bring it up. So how can you cope with and manage fatigue to feel your best? First,it is important to understand the causes. Then [...] because you feel like you just don thave the energy or motivation. If you notice [...] like fatigue. A person with this symptom mustmove slowly and will find it hard to finish a task in a regular amount of time. Everyday tasks suchas getting dressed can take a lot of [...] shaking, and akinesia put stress on a persons muscles. To move with these symptoms, muscles [...] and is often reported as a lack ofmotivation or a loss of energy. Tip: A [...] understanding how to help people with PD overcomeFatigue. In 2017, we provided funding to two researchers studying fatigue. Danni Hernandez, Ph.D. at [facility] is studying Multi-modal Neuroimaging of Fatigue in [...] people with PD. Brendan Jordan M.D. at [facility] is studying Remotely Supervised Transcranial Direct Current Stimulation (tDCS) for At-home Treatment of Fatigue and Cognitive Slowing in Parkinson s Disease This study looks at whether a non-invasive, brain stimulation device paired with online cognitive training could alleviate fatigue and cognitive slowing in people with PD. This study uses a speciallydesigned tDCS device through a new method of [...] find that you actually feel more energetic afteryou exercise! When exercising, you should have reasonable [...] For more information and resources see https://www.parkinson.org/. [facility] is a Center of Excellence for the Parkinson s Foundation. documented in this encounterVeter[facility]10-29-2024 History of Present illness Narrative* Marilu Martinez MD - 03/22/2024 11:19 AM EDT [facility] - NEW PATIENT EVALUATION [...] HPI Here to establish care. [place] in [place]23. 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 Plans to leave for [place] in May, visit multiple friends until July. Will resume therapy when they get to [place]. PD started 2010 with left hand tremor. Doesn't notice any symptoms on the right side. Wanting neuropsychological testing. Screening in the neurologist office reportedly indicated mild impairment. Cannot draw the clock. Was scheduled in [place] but unable to get it completed before they moved to [place]. She loses her train of thought. Needs repetition. Delayed recall. Friends are patient withher in conversation. Was going to do cognitive therapy in [place] but ran out of time before they left. Exercises, boxing class, etc. Solange PD exercise classes. Very active socially. 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 Participated in multiple clinical trials in [place]. Question if levodopa pump has been approved. [...] syncope. In 2022 she was falling due tosyncope. Doesn't get enough water. Drinks Propel. Doesn't [...] SURGERY solifenacin (VESICARE) 10 mg tablet Coenzyme J60-Aiyckll E 100-5 mg-unit cap Take by mouth. [...] no acute distress, good nutritional status, normal development,well-kept General Neurological Examination: Neurological Exam Mental Status [...] in upper and lower extremities. Coordination Right: Ufytcb-gf-gbkc normal. Rapid alternating movement normal.Left: Yborql-rp-gfen normal. Rapid alternating movement normal. Movement Disorders [...] amplitude decrements near the end of the 10taps. Finger Taps Left 0-Normal. No problems. Hand [...] old female with PD. Previously followed at [facility] in [facility]. [place]oved to [place] to be closer to family and plans to maintain care in both [place] and [place]. - cognitive impairment: neuropsychological testing was planned in [place] but unable to be completed. Will complete in [place], order entered. - Parkinson's: she looks very well from a motor standpoint. She notices off time only in the evenings and overnight. Her started an extra 1 tablet of Sinemet around 7 PM when they have socialevents planned and this works well. Her current dose of Sinemet CR is not holding her overnight so we will increase it. We discussed the recent approval of [employer]. She currently is only bothered by liliana robert in the evening we will try to [...] per day Vesicare Level of service : 93524 (60-88) min). Time spent 84 min on the day of service, which included preparing to see the patient, lucz-og-aisq patient care, completing clinical documentation, obtaining and/or [...] hesitate to call with any questions. Sincerely, Marilu Martinez MD [facility] Diagnosis Parkinson's disease with dyskinesia and fluctuating manifestations (HCC)- Primary [facility]* Diagnosis Parkinson's disease with dyskinesia and fluctuating manifestations (HCC)- Primary Dementia due to Parkinson's disease, without behavioral disturbance, psychotic disturbance, mood disturbance, or anxiety, unspecified dementia severity (HCC) Urinary urgency Urgency of urination documented in this encounter [facility] note* Diagnosis Onset Date Resolution Status Admit Date Hx of Crohn's disease acute Oct e 2024 10:32am [facility] Work Phone: Evaluation note* Diagnosis Dementia due to Parkinson's disease, without behavioral disturbance, psychotic disturbance, mood disturbance, or anxiety, unspecified dementia severity (HCC) documented in this encounter [facility]* Diagnosis Dementia due to Parkinson's disease, without behavioral disturbance, psychotic disturbance, mood disturbance, or anxiety, unspecified dementia severity (HCC) documented in [facility]* Diagnosis Parkinson's disease with dyskinesia and fluctuating manifestations (HCC)- Primary Dementia due to Parkinson's disease, without behavioral disturbance, psychotic disturbance, mood disturbance, or anxiety, unspecified dementia severity (HCC) Adverse effect of drug that acts primarily on skin, initial encounter [facility] (narrative)No reason for referral information availablePorter [facility] Hospital Services Work Phone: Reason for Referral Specialty Diagnoses / Procedures Referred By Lilyac t Referred To Contact Diagnoses Parkinson's disease with dyskinesia and fluctuating manifestations (HCC) Procedures PROVIDER ORDERED FOLLOW UP OFFICE/OUTPATIENT [facility] 60 MINUTES Marilu Martinez MD [address] [id number] Referral ID Status Reason Start Date Expiration Date Visits Requested Visits Authorized [id number] Authorized PCP Requested Referral 12/20/2024 03/22/2025 1 [...] EA ADDL 30 MIN Marilu Martinez MD [address] [address] Referral ID Status Reason Start Date Expiration Date Visits Requested Visits Authorized [id number] Ref Not Required PCP Requested Referral 03/22/2025 1 3 Chief Complaint and Reason for Visit Chief Complaint Admit Date Crohns November 01, 2024 10:3 2am Reason for Visit Admit Date Hx of Crohn's disease November 01, 2024 10 :32am Chief Complaint Admit Date Crohns November 01, 2024 10:3 2am INT LAB ORDERS November 01, 2024 11:3 5am E-ORDER November 03, 2024 4:39 pm Summary Purpose Family History No Family History [...] or prosecute any alcohol or drug abuse patient.[facility] AdministrationIn the event this information is protected by the Federal Confidentiality of Alcohol and Drug Abuse Patient Records regulations: The Federal rules restrict any use of the information to criminally investigate or prosecute any alcohol or drug abuse patient.[facility] AdministrationIn the event this information is protected by the Federal Confidentiality of Alcohol and Drug Abuse Patient Records regulations: The Federal rules restrict any use of the information to criminally investigate or prosecute any alcohol or drug abuse patient.[facility] AdministrationIn the event this information is protected by the Federal Confidentiality of Alcohol and Drug Abuse Patient Records regulations: The Federal rules restrict any use of the information to criminally investigate or prosecute any alcohol or drug abuse patient.[facility] the event this information is protected by the Federal Confidentiality of Alcohol and Drug Abuse Patient Records regulations: The Federal rules restrict any use of the information to criminally investigate or prosecute any alcohol or drug abuse patient.[facility] AdministrationIn the event this information is protected by the Federal Confidentiality of Alcohol and Drug Abuse Patient Records regulations: The Federal rules restrict any use of the information to criminally investigate or prosecute any alcohol or drug abuse patient.[facility] AdministrationIn the event this information is protected by the Federal Confidentiality of Alcohol and Drug Abuse Patient Records regulations: The Federal rules restrict any use of the information to criminally investigate or prosecute any alcohol or drug abuse patient.[facility] Reason for Visit (unrecogniz ed section and content) Reason Comments New Patient Evaluation Reason Comments Parkinson's Disease Reason Onset Date Comments Refill Request 11/12/2024 Reason Onset Date Comments Refill Request 12/08/2024 Reason Comments Insurance Authorization Reason Onset Date Comments Refill Request 12/13/2024 Reason Comments Follow Up Parkinson's Disease Specialty Diagnoses / Procedures Referred By Contraman t Referred To Contact Diagnoses Dementia due to Parkinson's disease, without behavioral disturbance, psychotic disturbance, mood disturbance, or anxiety, unspecified dementia severity (HCC) Procedures PROVIDER ORDERED FOLLOW UP OFFICE/OUTPATIENT NEW HIGH MDM 60 MINUTES Jessie Luke APRN.QUALITY CONSULTANT [address] [address] Phone: tel: fax: Referral ID Status Reason Start Date Expiration Date Visits Re quested Visits Authorized [id number] Closed 12/09/2024 03/09/2025 1 1 Care Teams (unrecognized sec tion and content) Team Status: Inactive Member Role Status Dates NYASIA Browne Attending Provider Active Start: November 01, 2024 End: November 01, 2024 Team Status: Active Member Role Status Dates Dr. David Phelps MD Primary Care Provider Active Team Status: Inactive Member Role Status Dates Dr. David Phelps MD Primary Care Provider Active Start: November 01, 2024 End: November 01, 2024 Dr. David Phelps MD Attending Provider Active Start: November 01, 2024 End: November 01, 2024 Dr. David Phelps MD Referring Provider Active Start: November 01, 2024 End: November 01, 2024 Team Status: Active Member Role Status Dates Dr. David Phelps MD Primary Care Provider Active Start: November 03, 2024 NYASIA Browne Attending Provider Active Start: November 03, 2024 NYASIA Browne Referring Provider Active Start: November 03, 2024 Team Status: Inactive Member Role Status Dates Dr. David Phelps MD Primary Care Provider Active Start: November 03, 2024 End: November 03, 2024 NYASIA Browne Attending Provider Active Start: November 03, 2024 End: November 03, 2024 NYASIA Browne Referring Provider Active Start: November 03, 2024 End: November 03, 2024 Goals (unrecognized section and content) Goals may be documented in a n alternate sectionGoals may be documented in an alternate sectionGoals may be documented in an alternate section INFORMATION SOURCE (unrecogn ized section and content) DATE CREATED AUTHOR 11/12/2024 [facility] DATE CREATED AUTHOR 'Alicia LAM ATION 04/06/2025 [facility] FOR RECORDS PERTAINING TO PATIENTS WHO ARE [...] BE BASED ON THE PRIMARY CLINICAL RECORDS. [facility]. provides no warranty or guarantee of the accuracy or completeness of information in this document.
== END | disposition home or self-care (01) ==
LOC: OPBD 14:32
PROVIDERS: PCP Family Medicine; Referring Provider Family Medicine; Visit Provider Family Medicine
DX: Z12.31 Encounter for screening mammogram for malignant neoplasm of breast (principal); Z78.0 Asymptomatic menopausal state
CPT/HCPCS: 77063; 77067; 77080